=== PATIENT | male | born 1945 | race Caucasian/White ===

== ENCOUNTER 2019-12-08 15:06 | Emergency (ER) | payer OTHER, MEDICARE, SELFPAY ==
[2019-12-08] VITALS (7 sets, daily range): BP systolic 129–161; BP diastolic 58–98; PULSE 68–91; RESP 14–20; TEMP 36.1–36.8; O2SAT 98–100; BMI 24.1
--- NOTE | 2019-12-08 15:52 | EKG12_ITS ---
Test Reason : DYSRHYTHMIA Blood Pressure : / mmHG Vent. Rate : 066 BPM Atrial Rate : 066 BPM P-R Int : 148 ms QRS Dur : 066 ms QT Int : 386 ms P-R-T Axes : 022 078 066 degrees QTc Int : 404 ms Normal sinus rhythm with sinus arrhythmia Early repolarization Normal ECG Confirmed by JUDY ABDI, DIXIE ([id number]), film editor DEBORA BARKSDALE ([id number]) on 12/13/2019 8:07:16 AM Referred By: ANDRA Confirmed By:DIXIE KIM MD
[2019-12-08] MEDS: Ipratropium/Albuterol Sulfate 3 ML AMPUL.NEB INHALATION (16:12)
[2019-12-08 16:27] LABS: Absolute Lymphocyte Count 2.39 X10^3/uL (0.83-4.51); Absolute Neutrophil Count 9.3 X10^3/uL (2.0-7.7); Basophil# 0.08 X10^3/uL; Basophil% 0.6 % (0-1); Eosinophil# 0.13 X10^3/uL; Hematocrit 38.5 % (40-54); Lymphocyte # 2.39 X10^3/ul (4.0); Mean Corp Hgb Conc 33.8 g/dL (32-36); Mean Corpuscular Hgb 32.1 pg (27.0-32.0); Mean Corpuscular Volume 95.1 fL (80-94); Mean Platelet Vol. 9.4 fl (6.2-12.0); Monocyte# 0.66 X10^3/uL; Monocyte% 5.2 % (0-10); NRBC Flagged by Analyzer 0 % (0-5); Neutrophil # 9.31 X10^3/uL (2.7-7.7); Neutrophil % 73.9 % (47-70); Platelet Count 277 K/mm3 (150-450); RBC Distribution Width CV 13.1 % (11.6-14.6); RBC Distribution Width SD 45.8 fl (35.1-43.9); Red Blood Count 4.05 M/mm3 (4.6-6.2); White Blood Count 12.6 K/mm3 (4.4-11.0)
--- NOTE | 2019-12-08 16:40 | RAD_ITS ---
STUDY: X-RAY CHEST REASON FOR EXAM: Male, 74 years old. New-onset shortness of breath over the past few weeks. Increased yawning. Decreased energy. TECHNIQUE: Single AP portable view of the chest. COMPARISON: None. FINDINGS: The lungs are clear and expanded. There is no demonstrated pleural abnormality. Normal size heart. Normal mediastinum and shirley. Normal visualized pulmonary arteries. There is atherosclerotic calcification of the aortic arch with tortuosity. There are mild degenerative changes of the visualized thoracic spine. Normal visualized ribs, clavicles, and shoulders. There is no demonstrated abnormality of the visualized soft tissue structures of the upper abdomen. RAD/Chest 1 View (Portable) IMPRESSION: No acute cardiopulmonary disease. Electronically Signed: Napoleon Newsome DO at 16:50 EDT Tel [phone], Service support ,
[2019-12-08 16:53] LABS: D-Dimer Quantitative (DVT/PE) 0.35 FEU/ug/m (0.27-0.49)
[2019-12-08 17:03] LABS: Anion Gap 6 (5-15); BUN 22 mg/dL (7-18); BUN/Creat Ratio 17.9 RATIO (10-20); Chloride 111 mmol/L (98-107); Creatinine, Serum 1.23 mg/dL (0.70-1.30); EST Glomerular Filtration Rate 61 mL/min (>60); Est Glom Filt Rate - Afr Amer 74 mL/min (>60); Estimated Creatinine Clearance 47.22 ml/min; Glucose 73 mg/dL (74-106); Potassium 5.3 mmol/L (3.5-5.1); Sodium Level 139 mmol/L (136-145)
[2019-12-08 17:09] LABS: Lactic Acid 1.4 mmol/L (0.4-1.9)
--- NOTE | 2019-12-08 17:11 | ED.DCSUM_ITS ---
- ER Visit Summary Date of Service: 12/08/19 Chief Complaint: Shortness of breath History of Present Illness: The patient is a 74 M who presents with shortness of breath that is been getting worse over the past 2 weeks. Patient states his breathing is worse with exertion. Patient states he is having subjective fevers and sweats. Patient states he is coughing up clear sputum. Patient admits to some rhinorrhea and sore throat. Patient admits to increasing fatigue. Patient denies any chest pain. Patient admits to nausea but denies any vomiting. Patient denies any sick contacts or exposures to COVID-19. Patient denies any loss of taste or smell. Physical Examination: Vital signs are stable. Patient is afebrile. Patient is in no acute distress. Oral mucosa is pink and moist. Neck is supple. Trachea is midline. There is no JVD noted. Heart was regular rate and rhythm. Lungs are clear but diminished bilaterally. Abdomen is soft. Bowel sounds are normal. There is no tenderness. There is no rebound or guarding noted. Skin is warm dry. Cranial nerves II through XII are intact. There are no focal motor or sensory deficits noted. Extremities are intact. There is no calf tenderness or edema. Test Results: EKG showed normal sinus rhythm with a rate of 66. There are no acute ST or T wave changes. Portable chest x-ray was obtained. There is no acute cardiopulmonary process. CBC shows a slight leukocytosis of 12.6. Basic metabolic profile shows a potassium of 5.3 but the specimen was moderately hemolyzed. Troponin was normal. D-dimer was normal. Influenza swab was negative. COVID test is pending. Emergency Department Course and Treatment: Patient was given a DuoNeb aerosol here. Patient was given a dose of prednisone here. Patient is feeling somewhat better on reevaluation. Ambulatory pulse ox was ordered. Disposition: Care of the patient was turned over to the oncoming physician. If the patient is ambulatory pulse ox is normal, the patient will be discharged home. If the patient's COVID swab is positive he will be instructed to quarantine for 2 weeks. Patient will be instructed to follow-up with his primary care physician in 5 to 7 days. Patient understands and is agreeable with the plan. All questions were answered. Impression: Dyspnea This note was generated with [employer] software. It may contain incorrect words, spelling, and punctuation that were not noted in review of the chart prior to signing ED Disposition - Plan for ED Patient: Diagnosis: Dyspnea Instructions: ED Dyspnea Prescriptions: Prednisone [Deltasone] 60 mg PO DAILY #12 tab Prescription Printed Albuterol Inhaler [Ventolin Hfa] 2 puff INHALATION Q4H PRN PRN #1 inhaler PRN Reason: Wheezing Prescription Printed Referrals: [facility] [Primary Care Provider] - 5-7 Days
[2019-12-08] MEDS: predniSONE 20 MG Tablet 60 MG PO (18:50)
--- NOTE | 2019-12-08 18:54 | ED.RN ---
PT DOES NOT HAVE COMPUTER OR INTERNET ACCESS TO OBTAIN PATIENT PORTAL, INSTRUCTED TO CALL ER FOR COVID RESULTS.
== END 2019-12-08 18:57 | disposition home or self-care (01) ==
PROVIDERS: Emergency Medicine; Emergency Provider Emergency Medicine
DX: R06.00 Dyspnea, unspecified (principal); Z87.891 Personal history of nicotine dependence
CPT/HCPCS: 71045; 80048; 83605; 84484; 85025; 85379; 87635; 87804; 93005; 94640; 99285; G2023; A4216; U0003

== ENCOUNTER 2025-05-22 09:04 | Emergency (ER) | payer OTHER, SELFPAY ==
[2025-05-22 09:04] VITALS: BP 147/93; PULSE 74; RESP 15; TEMP 36; O2SAT 97; BMI 24.6
--- NOTE | 2025-05-22 09:22 | EX.ED.GENINJ ---
HPI History of Present Illness Chief Complaint: Bite Narrative Narrative: Patient is a 80-year-old male presenting to the emergency department for a rash on his left upper arm. Patient has past medical history of hyperlipidemia, PTSD, back pain. Patient states that last stated dinner he was told by his friends that he should get the rash on his left upper arm checked out. He states that about 2 to 3 days ago he noticed the rash and he felt like there was something in it that he scratched out. States that he was recently in some wooded type areas. He denies any symptoms including viral-like symptoms. Denies any joint pain. States this is the only rash she has. States it is not itchy anymore. Denies any fever or chills. 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 combat History of prostate disorder History of fracture of foot History of fracture of leg History of skull fracture History of alcoholism High cholesterol Home Medications ?Medication ?Instructions ?Recorded ?Last Taken ?Type albuterol sulfate 90 mcg/actuation 2 puff inhalation Q4H PRN PRN 12/08/19 Unknown Rx aerosol inhaler Wheezing ##1 prednisone 20 mg tablet 60 mg (3 x 20 mg) PO DAILY #12 tabs 12/08/19 Unknown Rx Allergy/AdvReac Type Severity Reaction Status Date / Time No Known Allergies Allergy Verified 05/22/25 09:05 Surgical History History of total colectomy Social History Smoking Status: Former smoker alcohol intake: former substance use type: marijuana what type of physical activity do you participate in: walking frequency: daily ROS ROS ED ROS Narrative See HPI EXAM Physical Exam Narrative Exam Narrative: Vital signs: Reviewed General: Alert and oriented x 3. No acute distress. Well-appearing, nontoxic HEENT: Head is normocephalic and atraumatic, sinuses nontender, pupils equal round and reactive. Nares are patent. Oropharynx and throat exams normal. Neck: Supple without lymphadenopathy nontender Cardiovascular: Regular rate and rhythm, no murmurs. No rubs or gallops. Normal S1 and S2 Respiratory: Clear to auscultation bilaterally. No wheezes, rales, rhonchi Abdominal: Soft and nontender. Normal bowel sounds. No guarding or rebound. Nonsurgical abdomen Extremities: No tenderness. No bruising. Normal range of motion. Normal sensation. Skin: There is a 3 cm circular, bull's-eye rash to the left inner upper arm. There is no extension of the rash outside the outer edges. Is not warm to the touch. There is no induration, fluctuance or drainage consistent with abscess or cellulitis. The rashes less erythematous in nature but more purpleish. There is no petechiae or bullae. No rash noted anywhere else on the skin or mucosal membranes. Neurological: Cranial nerves II through XII are grossly intact. Normal strength and sensation. Normal cerebellar function The rest of the physical exam is unremarkable Const Vital Signs: 05/22/25 09:04 Temperature 96.8 F L Temperature Source Temporal Pulse Rate 74 Respiratory Rate 15 Blood Pressure 147/93 H Blood Pressure Mean 111 Pulse Ox 97 Oxygen Delivery Method Room Air MDM MDM MDM Narrative Medical decision making narrative: Patient is a 80-year-old male presenting to the emergency department due to concern for possible tick bite. Patient was seen and examined. Vitals are stable. Patient resting bed comfortably in no acute distress. The rash does appear slightly consistent in bull's-eye appearance to a tick bite rash. It is more bruised than I would expect. I discussed with the patient that given we are unsure if this was a tick bite and unsure if it was attached for 72 hours, we can treat with one-time prophylactic dose of doxycycline. Patient has no symptoms and requires no further dosing of this at this time. I did educate him on watching for signs of possible Lyme disease which include viral-like illness over the next 7 to 14 days. I also recommended that he watch the area for any signs of cellulitis or abscess which was discussed with him. He does have a primary care doctor at the [facility] to follow-up with. Patient discharged from the Emergency Department. I do not feel that the patient's evaluation reveals any acute reason for admission at this time. I instructed them to either follow-up with their primary care physician or promptly return to the Emergency Department for reevaluation should symptoms worsen or new symptoms develop. I explained what symptoms would indicate the need to return to the emergency department. Shared decision making was used. The patient voiced understanding of the treatment plan and is agreeable with it. Clinical impression Rash History & Record Review Discussion w/independent historian: Patient Discharge Plan Triage Chief Complaint: Bite ED Provider: Norma Cr Dx/Rx/DC Orders Clinical Impression: Rash Instructions: ED Tick Facts, ED Tick Bite, Antibiotic Treatment Prescriptions: No Action prednisone 20 MG tablet 60 mg PO DAILY Qty: 12 0RF Rx Instructions: With food albuterol sulfate 1 INHALER inhaler 2 puff inhalation Q4H PRN PRN (Reason: Wheezing) Qty: 1 0RF [facility]: [facility] Referrals: [facility] [Primary Care Provider, None] - As soon as possible Activity Restrictions/Additional Instructions: Follow-up with your primary care doctor as soon as possible. You received a prophylactic dose of doxycycline here for possible tick bite. Your evaluation in the Emergency Department did not reveal any acute reason for admission. However, I want to emphasize that you may be early in the course of a disease process or illness even if it is not present. For this reason you should follow-up within 24 hours for reevaluation with either your primary care physician or if necessary back here in the Emergency Department. You should return to the Emergency Department immediately if your symptoms worsen or new symptoms develop. Print Language: [place] Disposition Disposition: Home, Self Care Discharge Date/Time: 05/22/25 09:30
--- OUTSIDE RECORDS SUMMARY | 2025-05-22 09:27 | XMS RPT_ITS | CCD ---
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 [place] [facility] [place] Referring Provider Unavailable Dossi DC, Dr. Bradford Attending Provider [facility] [place] Primary [place] [facility] Referring Provider Unavailable Dossi DC, Dr. Bradford Attending Provider [facility] [place] [facility] [place] Referring Provider Unavailable Dossi DC, Dr. Bradford Attending Provider [phone] [facility] [place] [facility] [place] Referring Unavailable DosSuzette madera Attending [facility] [place] Referring Unavailable DossiSuzette Attending [facility] [place] [facility] Unavailable DossiSuzette [facility] [place] [facility] [place] [facility] [place] Referring Unavailable DossiSuzette Att[facility] [place] [facility] [place] [facility] [place] Referring Unavailable DossiSuzette Attending [facility] [place] [facility] [place] Referring Unavailable DossiSuzette Attending [facility] [place] [facility] [place] Referring Unavailable DossiSuzette Attending [facility] [place] [facility] [place] Referring Unavailable DossiSuzette Attending [facility] [place] [facility] [place] [facility] Unavailable DosSuzette madera Attending [facility] [place] [facility] [place] [facility] Unavailable DosSuzette madera Att[facility] [place] [facility] Un[facility] DossiSuzette [facility] [place] [facility] [place] [facility] Unavailable DossiSuzette Attending [facility] [place] [facility] [place] [facility] Unavailable DossiSuzette Attending [facility] [place] Referring Unavailable Suzette Valiente Attending [facility] [place] [facility] [place] [facility] Unavailable Suzette Valiente [facility] [place] [facility] Un[facility] Suzette Valiente [facility] [place] [facility] Unavailable Medications Current Medications Medication Drug Class(es) Dates Sig (Normalized) Sig (Original) [id number] 200 actuat albuterol 0.09 mg/actuat metered dose inhaler (3 sources) beta2-Adrenergic Agonist Start: 12-08-2019 Albuterol Sulfate 1 INHALER inhaler Active 2 NMA INHALATION EVERY 4 HOURS NEEDED as needed for Wheezing 1 December 08, 2019 12:00am predniSONE 20 mg oral tablet (3 sources) Start: 12-08-2019 take 3 tablets by mouth once daily at mealtime Prednisone 20 MG tablet Active 60 mg PO DAILY December 08, 2019 12:00am With food Completed/Discontinued Medications Medication Drug Class(es) Dates Sig (Normalized) Sig (Original) ARIPiprazole 5 mg oral tablet (1 source) Atypical Antipsychotic take 1 tablet by mouth once daily ARIPiprazole (ABILIFY) 5 mg tablet Take 5 mg by mouth once daily. 0 Active Comment on above: Take 5 mg by mouth o nce daily. aspirin 81 mg delayed release oral tablet (1 source) Platelet Aggregation Inhibitor, Nonsteroidal Anti-inflammatory Drug Start: 03-16-2009 aspirin(ECOTRIN LOW STRENGTH 81 MG TAB) Take one(1) tablet daily. 0 03/16/2009 Active Comment on above: Take one(1) tablet d aily. atorvastatin 40 mg oral tablet (1 source) HMG-CoA Reductase Inhibitor take 1 tablet by mouth once daily atorvastatin (LIPITOR) 40 mg tablet Take 40 mg by mouth once daily. 0 Active Comment on above: Take 40 mg by mouth once daily. citalopram 20 mg oral tablet (1 source) Serotonin Reuptake Inhibitor Start: 01-07-2007 take 1 tablet by mouth once daily citalopram (CELEXA) 20 mg ORAL Tab Take one(1) tablet daily. 0 01/07/2007 Active Comment on above: Take one(1) tablet d aily. loperamide hydrochloride 2 mg oral tablet (1 source) Opioid Agonist take 1 tablet by mouth once daily Loperamide HCl (IMODIUM) 2 mg tab Take 2 mg by mouth once daily. 0 Active Comment on above: Take 2 mg by mouth o nce daily. MULTIVITAMIN TAB (1 source) Start: 08-21-2005 MULTIVITAMIN TAB Take one(1) tablet daily. 0 08/21/2005 Active Comment on above: Take one(1) tablet d aily. OMEGA 3 550 MG CAP (1 source) Start: 08-21-2005 OMEGA 3 550 MG CAP omeprazole 20 mg oral tablet (1 source) Proton Pump Inhibitor OMEPRAZOLE ORAL Take 20 mg by mouth. 0 Active Comment on above: Take 20 mg by mouth. 24 hr oxybutynin chloride 10 mg extended release oral tablet (1 source) Cholinergic Muscarinic Antagonist Start: 08-20-2017 take 1 tablet by mouth once daily oxybutynin ER (DITROPAN XL) 10 mg 24 hr tablet Take 1 tablet by mouth once daily. 90 tablet 3 08/20/2017 Active Comment on above: Take 1 tablet by dayanara th once daily. tamsulosin hydrochloride 0.4 mg oral capsule (1 source) alpha-Adrenergic Mayuri tamsulosin ER (FLOMAX) 0.4 mg cp24 Take 0.4 mg by mouth. 0 Active Comment on above: Take 0.4 mg by mouth . Problems Active Problems Problem Classification Problem Date Documented Date Episodic/Chronic Anxiety disorders (4 sources) Posttraumatic stress disorder; Translations: [Post-traumatic stress disorder, unspecified] 04-09-2021 Chronic Disorders of lipid metabolism (4 sources) Hyperlipidemia; Translations: [Hyperlipidemia, unspecified] 04-09-2021 Chronic Esophageal disorders (1 source) Gastroesophageal reflux disease; Translations: [Gastro-esophageal reflux disease without esophagitis] Onset: 01-30-2021 01-30-2021 Chronic Genitourinary symptoms and ill-defined conditions (1 source) Urge incontinence of urine; Translations: [Urge incontinence] Onset: 08-20-2017 08-20-2017 Chronic Hyperplasia of prostate (1 source) Urinary urgency due to benign prostatic hypertrophy; Translations: [Benign prostatic hyperplasia with lower urinary tract symptoms] 04-09-2021 Chronic Miscellaneous mental health disorders (1 source) Nightmares associated with chronic post-traumatic stress disorder; Translations: [Nightmare disorder] 08-20-2017 Chronic Other bone disease and musculoskeletal deformities (20 sources) Segmental and somatic dysfunction; Translations: [Segmental and somatic dysfunction of cervical region] 11-02-2020 Episodic Other bone disease and musculoskeletal deformities (1 source) Segmental and somatic dysfunction of pelvic region; Translations: [Segmental and somatic dysfunction of pelvic region] Onset: 12-01-2024 Episodic Other bone disease and musculoskeletal deformities (1 source) Segmental and somatic dysfunction of cervical region; Translations: [Segmental and somatic dysfunction of cervical region] Onset: 12-01-2024 Episodic Other bone disease and musculoskeletal deformities (1 source) Segmental and somatic dysfunction of thoracic region; Translations: [Segmental and somatic dysfunction of thoracic region] Onset: 12-01-2024 Episodic Other bone disease and musculoskeletal deformities (1 source) Segmental and somatic dysfunction of lumbar region; Translations: [Segmental and somatic dysfunction of lumbar region] Onset: 12-01-2024 Episodic Other lower respiratory disease (3 sources) Dyspnea; Translations: [Dyspnea, unspecified] 12-09-2019 Episodic Spondylosis; intervertebral disc disorders; other back problems (20 sources) Degeneration of lumbosacral intervertebral disc; Translations: [Degeneration of intervertebral disc of lumbosacral region] Onset: 02-24-2024 03-16-2024 Chronic Comment on above: L5/S1 Spondylosis; intervertebral disc disorders; other back problems (19 sources) Backache; Translations: [Dorsalgia, unspecified] 08-08-2021 Episodic Unclassified (1 source) Other intervertebral disc degeneration, lumbosacral region with discogenic back pain only; Translations: [Other intervertebral disc degeneration, lumbosacral region with discogenic back pain only] Onset: 12-01-2024 Unclassified (1 source) Low back pain, unspecified; Translations: [Low back pain, unspecified] Onset: 10-13-2024 Past or Other Problems Problem Classification Problem Date Documented Date Episodic/Chronic Cardiac dysrhythmias (1 source) Sinus bradycardia; Translations: [Bradycardia, unspecified] Onset: 01-30-2021 01-30-2021 Episodic Other and unspecified benign neoplasm (1 source) Benign neoplasm of colon; Translations: [Benign neoplasm of colon, unspecified] Onset: 06-04-2005 06-04-2005 Episodic Other ear and sense organ disorders (1 source) Patient encounter status; Translations: [Examination of ears and hearing] Onset: 08-21-2005 08-21-2005 Episodic Other nervous system disorders (1 source) Postoperative pain ; Translations: [Other acute postprocedural pain] Onset: 04-06-2021 04-09-2021 Episodic Residual codes; unclassified (1 source) History of total colectomy; Translations: [Acquired absence of other specified parts of digestive tract] Onset: 01-30-2021 01-30-2021 Episodic Screening and history of mental health and substance abuse codes (1 source) Ex-smoker; Translations: [Personal history of nicotine dependence] Onset: 01-30-2021 01-30-2021 Episodic Results Test Name Value Interpretation Reference Range Facil ity Chiropractic Reporton 2024 Chiropractic Report [facility] [place] [address] OFFICE VISIT Date of Service: 12/01/24 MR#: [id number] Acct: [id number] Name: CAMERON CODY Rep #: [id number] : 1945 Provider: ELMIRA Bradford Do ssi Age/Sex: 79/M Location: [facility] [place] Status: Signed Intake Vital Signs 09/21/24 10:05 Height 5 ft 6 in Intake Visit Reasons: Back pain Chief Complaint: Low Back and neck Pain Is patient in pain?: Yes (low back and neck ) Pain scale (1-10): 5 Allergies No Known Allergies Allergy (Verified 12/01/24 11:15) Medications ???Medication ???Instructions ???Recorded ???Confirmed ???Type albuterol sulfate 90 mcg/actuation 2 puff inhalation Q4H PRN PRN 12/01/24 Rx aerosol inhaler Wheezing ##1 prednisone 20 mg tablet 60 mg (3 x 20 mg) PO DAILY #12 tab s 12/08/19 12/01/24 Rx Have you fallen in the past year?: No PFSH Medical History Chronic post-traumatic stress disorder (PTSD) after combat History of prostate disorder History of fracture of foot History of fracture of leg History of skull fracture History of alcoholism High cholesterol Surgical History History of total colectomy Social History Smoking Status: Former smoker alcohol intake: former substance use type: marijuana what type of physical activity do you participate in: walking frequency: daily HPI Back pain Chief Complaint: low back/neck Visit Number: 7 Details: CAMERON CODY is a 79 year old M here to follow up with ongoing low back and neck pain. Pt. complains of neck pain and stiffness that is slightly worse on the right side and extends into his traps and across his shoulder blades. He also reports limited and painful ROM. He rates his neck and upper back pain 7/10. He also c/o low back pain and stiffness that is equal bilaterally. He states he has not been doing much outside d/t the hot humid weather we have been having. He rates his low back pain 5/10. He states he has slowed down recently and is feeling his age. He states he is going to try walk today since it is a little cooler. He states walking helps decrease his stiffness. Cameron treats pain at home with ice as needed. Pt. denies new injury, numbness, tingling. or radiculopathy. He reports chiropractic adjustments are helpful in relieving his pain and discomfort but it gradually returns. Location: Neck/Back Duration: frequent Aggravating or associated factors: sitting/standing transition, ADLs Relieving factors: chiro Treatment: ice, walking Pain Quality: aching and dull Exam Musc General: Yes normal posture, normal gait, joint tenderness and decreased range of motion Cervical Spine: Yes loss of normal cervical lordosis, Yes cervical muscular tenderness bilateral lower , Yes cervical spasm right greater than left diffuse trapezius and paracervical muscles and Yes misalignment misalignment: C4, C5, C6 and C7 Thoracic/Lumber: Yes thoracic and lumbar spine normal to inspection, Yes paraspinal tenderness on the right greater than left (upper thoracic,lower lumbar), Yes scoliosis (lower thoracic-right, Lumbar- left), Yes thoraco-lumbar spasm on the right greater than left (paraspinal T2-T6, trap) and on the left greater than right (T10-L5 paraspinal) and Yes misalignment T1, T2, T5, T6, L4, L5 and LIL Sacroiliac joints: on the left tender to palpation Office Procedures Procedures - Chiropractic Procedures Manipulation: Cervical C6, Lumbar L4, Thoracic T2 and T6 and Pelvis LIL Manipulation: 3-4 regions Patient Response: positive Assessment and Plan Assessment and Plan (1) Segmental and somatic dysfunction of lumbar region: Status: Acute (2) Segmental and somatic dysfunction of thoracic region: Status: Acute (3) Segmental and somatic dysfunction of cervical region: Status: Acute (4) Segmental and somatic dysfunction of pelvic region: Status: Acute (5) DDD (degenerative disc disease), lumbosacral: Status: Chronic Qualifiers: Disc-related pain type: discogenic back pain only Qualified Code(s): M51.370 - Other intervertebral disc degeneration, lumbosacral region with discogenic back pain only Comment: L5/S1 Orders: Orders Chiropractic Treatments 12/01/24 M51.370 - Other intervertebral disc degeneration, lumbosacral region with discogenic back pain only, M99.01 - Segmental and somatic dysfunction of cervical region, M99.02 - Segmental and somatic dysfunction of thoracic region, M99.03 - Segmental and somatic dysfunction of lumbar region, M99.05 - Segmental and somatic dysfunction of pelvic region Plan Patient was treated without incident. Continue care as needed. Authorize more visits shou (more content not included)... [facility] Chiropractic Reporton 2024 Chiropractic Report [facility] [address] [place] [id number] OFFICE VISIT Date of Service: 11/03/24 MR#: [id number] Acct: [id number] Name: CAMERON CODY Rep #: [id number] : 1945 Provider: ELMIRA Copeland Age/Sex: 79/M Location: [facility] [place] Status: Signed Intake Vital Signs 09/21/24 10:05 Height 5 ft 6 in Intake Visit Reasons: Back pain Chief Complaint: Low Back and neck Pain Is patient in pain?: Yes (neck, upper and low back) Pain scale (1-10): 7 Allergies No Known Allergies Allergy (Verified 11/03/24 10:10) Medications ???Medication ???Instructions ???Recorded ???Confirmed ???Type albuterol sulfate 90 mcg/actuation 2 puff inhalation Q4H PRN PRN 07 /08/20 06/04/25 Rx aerosol inhaler Wheezing ##1 prednisone 20 mg tablet 60 mg (3 x 20 mg) PO DAILY #12 tab s 12/08/19 11/03/24 Rx Have you fallen in the past year?: No PFSH Medical History Chronic post-traumatic stress disorder (PTSD) after combat History of prostate disorder History of fracture of foot History of fracture of leg History of skull fracture History of alcoholism High cholesterol Surgical History History of total colectomy Social History Smoking Status: Former smoker alcohol intake: former substance use type: marijuana what type of physical activity do you participate in: walking frequency: daily HPI Back pain Chief Complaint: low back/neck Visit Number: 6 Details: CAMERON CODY is a 79 year old M here to follow up with ongoing low back and neck pain. Pt. complains of neck pain and stiffness that is slightly worse on the right side and extends into his traps and across his shoulder blades. He also reports limited and painful ROM. He rates his neck and upper back pain 7/10. He also c/o low back pain and stiffness that is equal bilaterally. He states he unloaded a yard of mulch yesterday which has really increased his upper and low back pain. He rates his low back pain 5/10. He states he has slowed down recently and is feeling his age. He has been outside more due to the weather being nicer. He continues to walk 4 miles per day outside which helps decrease his stiffness. Cameron treats pain at home with ice as needed. Pt. denies new injury, numbness, tingling. or radiculopathy. He reports chiropractic adjustments are helpful in relieving his pain and discomfort but it gradually returns. Location: Neck/Back Duration: frequent Aggravating or associated factors: sitting/standing transition, ADLs Relieving factors: chiro Treatment: ice, walking Pain Quality: aching and dull Exam Musc General: Yes normal posture, normal gait, joint tenderness and decreased range of motion Cervical Spine: Yes loss of normal cervical lordosis, Yes cervical muscular tenderness right greater than left diffuse , Yes cervical spasm right greater than left diffuse trapezius and paracervical muscles and Yes misalignment misalignment: C4, C5, C6 and C7 Thoracic/Lumber: Yes thoracic and lumbar spine normal to inspection, Yes paraspinal tenderness on the right greater than left (upper thoracic,lower lumbar), Yes scoliosis (lower thoracic-right, Lumbar- left), Yes thoraco-lumbar spasm on the right greater than left (paraspinal T2-T6, trap) and on the left greater than right (T10-L5 paraspinal) and Yes misalignment T1, T2, T5, T6, L4, L5 and LIL Sacroiliac joints: on the left tender to palpation Office Procedures Procedures - Chiropractic Procedures Manipulation: Cervical C6, Lumbar L4, Thoracic T2 and T6 and Pelvis LIL Manipulation: 3-4 regions Patient Response: positive Assessment and Plan Assessment and Plan (1) Segmental and somatic dysfunction of lumbar region: Status: Acute (2) Segmental and somatic dysfunction of thoracic region: Status: Acute (3) Segmental and somatic dysfunction of cervical region: Status: Acute (4) Segmental and somatic dysfunction of pelvic region: Status: Acute (5) DDD (degenerative disc disease), lumbosacral: Status: Chronic Qualifiers: Disc-related pain type: discogenic back pain only Qualified Code(s): M51.370 - Other intervertebral disc degeneration, lumbosacral region with discogenic back pain only Comment: L5/S1 (6) Back pain: Status: Chronic Qualifiers: Back pain location: low back pain Chronicity: acute Back pain laterality: bilateral Sciatica presence: without sciatica Qualified Code(s): M54.50 - Low back pain, unspecified Orders: Orders Chiropractic Treatments 11/03/24 M51.370 - Other intervertebral disc degeneration, lumbosacral region with discogenic back pain only, M99.01 - Segmental and somatic dysfunction of cervical region, M99.02 (more content not included)... [facility] Chiropractic Reporton 2024 Chiropractic Report [facility] [address] [place] [id number] OFFICE VISIT Date of Service: 10/13/24 MR#: [id number] Acct: [id number] Name: CAMERON CODY Rep #: [id number] : 1945 Provider: ELMIRA Copeland Age/Sex: 79/M [place] [facility] Status: Signed Intake Vital Signs 09/21/24 10:05 Height 5 ft 6 in Intake Visit Reasons: Back pain Chief Complaint: Low Back and neck Pain Is patient in pain?: Yes (LBP) Pain scale (1-10): 6 Allergies No Known Allergies Allergy (Verified 10/13/24 10:40) Medications ???Medication ???Instructions ???Recorded ???Confirmed ???Type albuterol sulfate 90 mcg/actuation 2 puff inhalation Q4H PRN PRN 10/13/24 Rx aerosol inhaler Wheezing ##1 prednisone 20 mg tablet 60 mg (3 x 20 mg) PO DAILY #12 tab s 12/08/19 10/13/24 Rx Have you fallen in the past year?: No PFSH Medical History Chronic post-traumatic stress disorder (PTSD) after combat History of prostate disorder History of fracture of foot History of fracture of leg History of skull fracture History of alcoholism High cholesterol Surgical History History of total colectomy Social History Smoking Status: Former smoker alcohol intake: former substance use type: marijuana what type of physical activity do you participate in: walking frequency: daily HPI Back pain Chief Complaint: low back/neck Visit Number: 5 Details: CAMERON CODY is a 79 year old M here to follow up with ongoing low back and neck pain. He complains of neck pain that is equal bilaterally and extends into his traps and across his shoulder blades. He denies any headaches and reports limited ROM. He also c/o low back pain and stiffness that is equal bilaterally. He rates his pain 6/10. He states he has slowed down recently and is feeling his age, he has an appointment with his pcp tomorrow for a check up. He has been doing yard work but he has been pacing himself and taking frequent breaks. He has been outside more due to the weather being nicer. He is walking 4 miles per day outside which helps decrease his stiffness. Cameron treats pain at home with ice as needed. Pt. denies new injury, numbness, tingling. or radiculopathy. He reports chiropractic adjustments are helpful in relieving his pain and discomfort but it gradually returns. Location: Neck/Back Duration: frequent Aggravating or associated factors: sitting/standing transition, ADLs Relieving factors: chiro Treatment: ice, walking Pain Quality: aching and dull Exam Musc General: Yes normal posture, normal gait, joint tenderness and decreased range of motion Cervical Spine: Yes loss of normal cervical lordosis, Yes cervical muscular tenderness bilateral lower paracervical muscle and trapezius, Yes cervical spasm bilateral lower trapezius and p aracervical muscles and Yes misalignment misalignment: C4, C5, C6 and C7 Thoracic/Lumber: Yes thoracic and lumbar spine normal to inspection, Yes paraspinal tenderness on the right greater than left (upper thoracic,lower lumbar), Yes scoliosis (lower thoracic-right, Lumbar- left), Yes thoraco-lumbar spasm on the right greater than left (paraspinal T2-T6, trap) and on the left greater than right (T10-L5 paraspinal) and Yes misalignment T1, T2, T5, T6, L4, L5 and LIL Sacroiliac joints: on the left tender to palpation Office Procedures Procedures - Chiropractic Procedures Manipulation: Cervical C6, Lumbar L4, Thoracic T2 and T6 and Pelvis LIL Manipulation: 3-4 regions Patient Response: positive Assessment and Plan Assessment and Plan (1) Back pain: Status: Acute Qualifiers: Back pain laterality: bilateral Back pain location: low back pain Chronicity: acute Sciatica presence: without sciatica Qualified Code(s): M54.50 - Low back pain, unspecified (2) Segmental and somatic dysfunction of lumbar region: Status: Acute (3) Segmental and somatic dysfunction of thoracic region: Status: Acute (4) Segmental and somatic dysfunction of cervical region: Status: Acute (5) Segmental and somatic dysfunction of pelvic region: Status: Acute (6) DDD (degenerative disc disease), lumbosacral: Status: Chronic Qualifiers: Disc-related pain type: discogenic back pain only Qualified Code(s): M51.370 - Other intervertebral disc degeneration, lumbosacral region with discogenic back pain only Comment: L5/S1 Orders: Orders Chiropractic Treatments 10/13/24 M51.370 - Other intervertebral disc degeneration, lumbosacral region with discogenic back pain only, M54.50 - Low back pain, unspecified, M99.01 - Segmental and somatic dysfunction of cervical region, M99.02 - Segmental and soma (more content not included)... [facility] Chiropractic Reporton 2024 Chiropractic Report [facility]ractic [facility] [place] [address] OFFICE VISIT Date of Service: 09/21/24 MR#: [id number] Acct: [id number] Name: CAMERON CODY Rep #: [id number] : 1945 Provider: ELMIRA Copeland Age/Sex: 79/M [place] [facility] Status: Signed Intake Vital Signs 09/07/24 10:23 Height 5 ft 6 in Intake Visit Reasons: Back pain Chief Complaint: Low Back and neck Pain Is patient in pain?: Yes (Neck, LBP) Pain scale (1-10): 4 Allergies No Known Allergies Allergy (Verified 09/21/24 09:41) Medications ???Medication ???Instructions ???Recorded ???Confirmed ???Type albuterol sulfate 90 mcg/actuation 2 puff inhalation Q4H PRN PRN 09/21/24 Rx aerosol inhaler Wheezing ##1 prednisone 20 mg tablet 60 mg (3 x 20 mg) PO DAILY #12 tab s 12/08/19 09/21/24 Rx Have you fallen in the past year?: No PFSH Medical History Chronic post-traumatic stress disorder (PTSD) after combat History of prostate disorder History of fracture of foot History of fracture of leg History of skull fracture History of alcoholism High cholesterol Surgical History History of total colectomy Social History Smoking Status: Former smoker alcohol intake: former substance use type: marijuana what type of physical activity do you participate in: walking frequency: daily HPI Back pain Chief Complaint: low back/neck Visit Number: 5 Details: CAMERON CODY is a 79 year old M here to follow up with ongoing low back and neck pain. He complains of neck pain and stiffness that is equal bilaterally. The neck pain extends into his upper back. He denies any headaches and states his ROM has improved. He rates his neck pain 4/10. He also c/o low back pain and tightness across equal bilaterally. He rates his low back pain 4/10 today. He has been busy power washing his house and truck and raking his leaves which exacerbates his pain. He has been outside more due to the weather being nicer. He is walking 4 miles per day outside which helps decrease his stiffness. He is still rebuilding his strength and energy from being sick this winter. Cameron treats pain at home with ice as needed. Pt. denies new injury, numbness, tingling. or radiculopathy. He reports chiropractic adjustments are helpful in relieving his pain and discomfort but it gradually returns. Location: Neck/Back Duration: frequent Aggravating or associated factors: sitting/standing transition, ADLs Relieving factors: chiro Treatment: ice, walking Pain Quality: aching and dull Exam Musc General: Yes normal posture, normal gait, joint tenderness and decreased range of motion Cervical Spine: Yes loss of normal cervical lordosis, Yes cervical muscular tenderness bilateral lower paracervical muscle and trapezius, Yes cervical spasm bilateral lower trapezius and paracervical muscles and Yes misalignment misalignment: C4, C5, C6 and C7 Thoracic/Lumber: Yes thoracic and lumbar spine normal to inspection, Yes paraspinal tenderness on the right greater than left (upper thoracic,lower lumbar), Yes scoliosis (lower thoracic-right, Lumbar- left), Yes thoraco-lumbar spasm on the right greater than left (paraspinal T2-T6, trap) and on the left greater than right (T10-L5 paraspinal) and Yes misalignment T1, T2, T5, T6, L4, L5 and LIL Sacroiliac joints: on the left tender to palpation Office Procedures Procedures - Chiropractic Procedures Manipulation: Cervical C6, Lumbar L4, Thoracic T2 and T6 and Pelvis LIL Manipulation: 3-4 regions Patient Response: positive Assessment and Plan Assessment and Plan (1) Back pain: Status: Acute Qualifiers: Back pain laterality: bilateral Back pain location: low back pain Chronicity: acute Sciatica presence: without sciatica Qualified Code(s): M54.50 - Low back pain, unspecified (2) Segmental and somatic dysfunction of lumbar region: Status: Acute (3) Segmental and somatic dysfunction of thoracic region: Status: Acute (4) Segmental and somatic dysfunction of cervical region: Status: Acute (5) Segmental and somatic dysfunction of pelvic region: Status: Acute (6) DDD (degenerative disc disease), lumbosacral: Status: Chronic Qualifiers: Disc-related pain type: discogenic back pain only Qualified Code(s): M51.370 - Other intervertebral disc degeneration, lumbosacral region with discogenic back pain only Comment: L5/S1 Orders: Orders Chiropractic Treatments Today M51.370 - Other intervertebral disc degeneration, lumbosacral region with discogenic back pain only, M54.50 - Low back pain, unspecified, M99.01 - Segmental and somatic dysfunction of cervical region, M99.02 (more content not included)... Normal [facility]ropractic Reporton 2024 Chiropractic Report [facility] [place] [address] OFFICE VISIT Date of Service: 09/07/24 MR#: [id number] Acct: [id number] Name: CAMERON CODY Rep #: [id number] : 1945 Provider: ELMIRA Copeland Age/Sex: 79/M Location: [facility] Status: Signed Intake Vital Signs 08/10/24 10:24 Height 5 ft 6 in Intake Visit Reasons: Back pain Chief Complaint: Low Back and neck Pain Allergies No Known Allergies Allergy (Verified 08/10/24 10:12) Have you fallen in the past year?: No [facility] Medical History Chronic post-traumatic stress disorder (PTSD) after combat History of prostate disorder History of fracture of foot History of fracture of leg History of skull fracture History of alcoholism High cholesterol Surgical History History of total colectomy Social History Smoking Status: Former smoker alcohol intake: former substance use type: marijuana what type of physical activity do you participate in: walking frequency: daily HPI Back pain Chief Complaint: low back/neck Visit Number: 4 Details: CAMERON CODY is a 79 year old M here to follow up with ongoing low back and neck pain. Pt. advises his neck is stiff and painful today. The pain extends into his upper back. He denies any headaches or limited ROM today. He rates his neck pain 5/10. He also c/o low back pain and tightness across equal bilaterally. He rates his low back pain 6/10 today. He pressure washed his deck last week which has contributed to his pain. He is trying to be more active now that the weather is nicer. He has been doing yard work and walking 4 miles a day. He is still rebuilding his strength and energy from being sick this winter. Cameron treats pain at home with ice as needed. Pt. denies new injury, numbness, tingling. or radiculopathy. He reports chiropractic adjustments are helpful in relieving his pain and discomfort but it gradually returns. Location: Neck/Back Duration: frequent Aggravating or associated factors: sitting/standing transition, ADLs Relieving factors: chiro Treatment: ice, walking Pain Quality: aching and dull Exam Musc General: Yes normal posture, normal gait, joint tenderness and decreased range of motion Cervical Spine: Yes loss of normal cervical lordosis, Yes cervical muscular tenderness bilateral lower paracervical muscle and trapezius, Yes cervical spasm bilateral lower trapezius and paracervical muscles and Yes misalignment misalignment: C4, C5, C6 and C7 Thoracic/Lumber: Yes thoracic and lumbar spine normal to inspection, Yes paraspinal tenderness on the right greater than left (upper thoracic,lower lumbar), Yes scoliosis (lower thoracic-right, Lumbar- left), Yes thoraco-lumbar spasm on the right greater than left (paraspinal T2-T6, trap) and on the left greater than right (T10-L5 paraspinal) and Yes misalignment T1, T2, T5, T6, L4, L5 and LIL Sacroiliac joints: on the left tender to palpation Office Procedures Procedures - Chiropractic Procedures Manipulation: Cervical C6, Lumbar L4, Thoracic T2 and T6 and Pelvis LIL Manipulation: 3-4 regions Patient Response: positive Assessment and Plan Assessment and Plan (1) Segmental and somatic dysfunction of lumbar region: Status: Acute (2) Segmental and somatic dysfunction of thoracic region: Status: Acute (3) Segmental and somatic dysfunction of cervical region: Status: Acute (4) Segmental and somatic dysfunction of pelvic region: Status: Acute (5) DDD (degenerative disc disease), lumbosacral: Status: Chronic Qualifiers: Disc-related pain type: discogenic back pain only Qualified Code(s): M51.370 - Other intervertebral disc degeneration, lumbosacral region with discogenic back pain only Comment: L5/S1 (6) Back pain: Status: Acute Qualifiers: Back pain location: low back pain Chronicity: acute Back pain laterality: bilateral Sciatica presence: without sciatica Qualified Code(s): M54.50 - Low back pain, unspecified Orders: Orders Chiropractic Treatments Today M51.370 - Other intervertebral disc degeneration, lumbosacral region with discogenic back pain only, M99.01 - Segmental and somatic dysfunction of cervical region, M99.02 - Segmental and somatic dysfunction of thoracic region, M99.03 - Segmental and somatic dysfunction of lumbar region, M99.05 - Segmental and somatic dysfunction of pelvic region Plan Patient was treated without incident. Continue care as needed. Plan Details Goals Barriers: Goals Decrease spasm Decrease pain Improve function Barriers DDD Follow Up: PRN (09/07) Coding Level of Care Code No Charge Diagnoses Segmental and somatic dysfuncti (more content not included)... Normal [facility]ic Reporton 2024 Chiropractic Report [facility] [address] [place] [id number] OFFICE VISIT Date of Service: 08/10/24 MR#: [id number] Acct: [id number] Name: CAMERON CODY Rep #: [id number] : 1945 Provider: ELMIRA Copeland Age/Sex: 79/M Location: [facility] Status: Signed Intake Vital Signs 08/13/23 10:18 Height 5 ft 6 in Intake Visit Reasons: Back pain Chief Complaint: Low Back and neck Pain Is patient in pain?: Yes (Neck, LBP) Pain scale (1-10): 5 Allergies No Known Allergies Allergy (Verified 08/10/24 10:12) Medications ???Medication ???Instructions ???Recorded ???Confirmed ???Type albuterol sulfate 90 mcg/actuation 2 puff inhalation Q4H PRN PRN 08/10/24 Rx aerosol inhaler Wheezing ##1 prednisone 20 mg tablet 60 mg (3 x 20 mg) PO DAILY #12 tab s 12/08/19 08/10/24 Rx Have you fallen in the past year?: No PFSH Medical History Chronic post-traumatic stress disorder (PTSD) after combat History of prostate disorder History of fracture of foot History of fracture of leg History of skull fracture History of alcoholism High cholesterol Surgical History History of total colectomy Social History Smoking Status: Former smoker alcohol intake: former substance use type: marijuana what type of physical activity do you participate in: walking frequency: daily HPI Back pain Chief Complaint: low back/neck Visit Number: 3 Details: CAMERON CODY is a 79 year old M here to follow up with ongoing low back and neck pain. Pt. advises he had an EGD yesterday and is moving slow today due to the anesthesia and the time change. He complains of neck pain and stiffness that is equal bilaterally. The pain extends into his upper back. He denies any headaches or limited ROM today. He complains of pain and tightness in his low back. He is trying to be more active now that the weather is nicer. He has been doing yard work and raking leaves which has exacerbated his pain and tightness. He is still rebuilding his strength and energy from being sick this winter. He rates his ain 5/10. Cameron also treats pain at home with ice as needed. Pt. denies new injury, numbness, tingling. or radiculopathy. He reports chiropractic adjustments are helpful in relieving his pain and discomfort but it gradually returns. Location: Neck/Back Duration: frequent Aggravating or associated factors: sitting/standing transition, ADLs,sickness Relieving factors: chiro Treatment: ice, walking Pain Quality: aching and dull Exam Musc General: Yes normal posture, normal gait, joint tenderness and decreased range of motion Cervical Spine: Yes loss of normal cervical lordosis, Yes cervical muscular tenderness bilateral lower paracervical muscle and trapezius, Yes cervical spasm bilateral lower trapezius and paracervical muscles and Yes misalignment misalignment: C4, C5, C6 and C7 Thoracic/Lumber: Yes thoracic and lumbar spine normal to inspection, Yes paraspinal tenderness on the right greater than left (upper thoracic,lower lumbar), Yes scoliosis (lower thoracic-right, Lumbar- left), Yes thoraco-lumbar spasm on the right greater than left (paraspinal T2-T6, trap) and on the left greater than right (T10-L5 paraspinal) and Yes misalignment T1, T2, T5, T6, L4, L5 and LIL Sacroiliac joints: on the left tender to palpation Office Procedures Procedures - Chiropractic Procedures Manipulation: Cervical C6, Lumbar L4, Thoracic T2 and T6 and Pelvis LIL Manipulation: 3-4 regions Patient Response: positive Assessment and Plan Assessment and Plan (1) Back pain: Status: Acute Qualifiers: Back pain laterality: bilateral Back pain location: low back pain Chronicity: acute Sciatica presence: without sciatica Qualified Code(s): M54.50 - Low back pain, unspecified (2) Segmental and somatic dysfunction of lumbar region: Status: Acute (3) Segmental and somatic dysfunction of thoracic region: Status: Acute (4) Segmental and somatic dysfunction of cervical region: Status: Acute (5) Segmental and somatic dysfunction of pelvic region: Status: Acute (6) DDD (degenerative disc disease), lumbosacral: Status: Chronic Qualifiers: Disc-related pain type: discogenic back pain only Qualified Code(s): M51.370 - Other intervertebral disc degeneration, lumbosacral region with discogenic back pain only Comment: L5/S1 Orders: Orders Chiropractic Treatments Today M51.370 - Other intervertebral disc degeneration, lumbosacral region with discogenic back pain only, M54.50 - Low back pain, unspecified, M99.01 - Segmental and somatic dysfunction of cervical region, M99.02 - Segmental and somatic dysfunction o (more content not included)... Normal [facility] Chiropractic Reporton 2024 Chiropractic Report [facility] [place] [address] OFFICE VISIT Date of Service: 07/20/24 MR#: [id number] Acct: [id number] Name: CAMERON CODY Rep #: [id number] : 1945 Provider: ELMIRA Copeland Age/Sex: 79/M Location: [facility] Status: Signed Intake Vital Signs 08/13/23 10:18 Height 5 ft 6 in Intake Visit Reasons: Back pain Chief Complaint: Low Back and neck Pain Is patient in pain?: Yes (Neck, LBP) Pain scale (1-10): 6 Allergies No Known Allergies Allergy (Verified 07/20/24 10:13) Medications ???Medication ???Instructions ???Recorded ???Confirmed ???Type albuterol sulfate 90 mcg/actuation 2 puff inhalation Q4H PRN PRN 07/20/24 Rx aerosol inhaler Wheezing ##1 prednisone 20 mg tablet 60 mg (3 x 20 mg) PO DAILY #12 tab s 12/08/19 07/20/24 Rx Have you fallen in the past year?: No PFSH Medical History Chronic post-traumatic stress disorder (PTSD) after combat History of prostate disorder History of fracture of foot History of fracture of leg History of skull fracture History of alcoholism High cholesterol Surgical History History of total colectomy Social History Smoking Status: Former smoker alcohol intake: former substance use type: marijuana what type of physical activity do you participate in: walking frequency: daily HPI Back pain Chief Complaint: low back/neck Visit Number: 2 Details: CAMERON CODY is a 79 year old M here to follow up with ongoing low back and neck pain. Pt. advises he is still recovering from the stomach flu and his colonoscopy. He states he has been exhausted over the last few weeks and does not have his energy back. He complains of neck pain and stiffness that extends into his upper back. He denies any headaches or limited ROM today. He complains of increased stiffness in his low back, he states he has been very sedentary lately which has caused this. He is very stiff upon ambulation today in the office. He rates his pain 6/10 today. Pt. has not been exercising and walking as often recently with being ill and the inclement weather. He is trying to get his strength back. Cameron also treats pain at home with ice as needed. Pt. denies new injury, numbness, tingling. or radiculopathy. He reports chiropractic adjustments are helpful in relieving his pain and discomfort but it gradually returns. Location: Neck/Back Duration: frequent Aggravating or associated factors: sitting/standing transition, ADLs,sickness Relieving factors: chiro Treatment: ice, walking Pain Quality: aching and dull Exam Musc General: Yes normal posture, normal gait, joint tenderness and decreased range of motion Cervical Spine: Yes loss of normal cervical lordosis, Yes cervical muscular tenderness bilateral lower paracervical muscle and trapezius, Yes cervical spasm bilateral lower trapezius and paracervical muscles and Yes misalignment misalignment: C4, C5, C6 and C7 Thoracic/Lumber: Yes thoracic and lumbar spine normal to inspection, Yes paraspinal tenderness on the right greater than left (upper thoracic,lower lumbar), Yes scoliosis (lower thoracic-right, Lumbar- left), Yes thoraco-lumbar spasm on the right greater than left (paraspinal T2-T6, trap) and on the left greater than right (T10-L5 paraspinal) and Yes misalignment T1, T2, T5, T6, L4, L5 and LIL Sacroiliac joints: on the left tender to palpation Office Procedures Procedures - Chiropractic Procedures Manipulation: Cervical C6, Lumbar L4, Thoracic T2 and T6 and Pelvis LIL Manipulation: 3-4 regions Patient Response: positive Assessment and Plan Assessment and Plan (1) Back pain: Status: Acute Qualifiers: Back pain laterality: bilateral Back pain location: low back pain Chronicity: acute Sciatica presence: without sciatica Qualified Code(s): M54.50 - Low back pain, unspecified (2) Segmental and somatic dysfunction of lumbar region: Status: Acute (3) Segmental and somatic dysfunction of thoracic region: Status: Acute (4) Segmental and somatic dysfunction of cervical region: Status: Acute (5) Segmental and somatic dysfunction of pelvic region: Status: Acute (6) DDD (degenerative disc disease), lumbosacral: Status: Chronic Qualifiers: Disc-related pain type: discogenic back pain only Qualified Code(s): M51.370 - Other intervertebral disc degeneration, lumbosacral region with discogenic back pain only Comment: L5/S1 Orders: Orders Chiropractic Treatments Today M51.370 - Other intervertebral disc degeneration, lumbosacral region with discogenic back pain only, M54.50 - Low back pain, unspecified, M99.01 - Segmental and somatic dys (more content not included)... Normal [facility]ic Reporton 2024 Chiropractic Report [facility] [address] [place] [id number] OFFICE VISIT Date of Service: 06/28/24 MR#: [id number] Acct: [id number] Name: CAMERON CODY Rep #: [id number] : 1945 Provider: ELMIRA Copeland Age/Sex: 79/M Location: [facility] Status: Signed Intake Vital Signs 08/13/23 10:18 Height 5 ft 6 in Intake Visit Reasons: Back pain Chief Complaint: Low Back and neck Pain Is patient in pain?: Yes (low back and neck) Pain scale (1-10): 6 Allergies No Known Allergies Allergy (Verified 06/28/24 09:44) Medications ???Medication ???Instructions ???Recorded ???Confirmed ???Type albuterol sulfate 90 mcg/actuation 2 puff inhalation Q4H PRN PRN 12/08/19 06/28/24 Rx aerosol inhaler Wheezing ##1 prednisone 20 mg tablet 60 mg (3 x 20 mg) PO DAILY #12 tabs 12/08/19 06/28/24 Rx Have you fallen in the past year?: No PFSH Medical History Chronic post-traumatic stress disorder (PTSD) after combat History of prostate disorder History of fracture of foot History of fracture of leg History of skull fracture History of alcoholism High cholesterol Surgical History History of total colectomy Social History Smoking Status: Former smoker alcohol intake: former substance use type: marijuana what type of physical activity do you participate in: walking frequency: daily HPI Back pain Chief Complaint: low back/neck Visit Number: 1 Details: CAMERON CODY is a 79 year old M here to follow up with ongoing low back and neck pain. Pt. advises he was ill with a stomach flu last week. He c/o neck tightness and pain which was aggravated with being laid up on the couch sick last week. He denies any headaches or limited ROM today. He also c/o tightness and achiness across his bilateral low back, equal bilaterally. He rates his pain 6/10 today. Pt. has not been exercising and walking as often recently with being ill and the inclement weather. He is trying to rehydrate and eat simple foods. Cameron also treats pain at home with ice as needed. Pt. denies new injury, numbness, tingling. or radiculopathy. He reports chiropractic adjustments are helpful in relieving his pain and discomfort but it gradually returns. Location: Neck/Back Duration: frequent Aggravating or associated factors: sitting/standing transition, ADLs,sickness Relieving factors: chiro Treatment: ice, walking Pain Quality: aching and dull Exam Musc General: Yes normal posture, normal gait, joint tenderness and decreased range of motion Cervical Spine: Yes loss of normal cervical lordosis, Yes cervical muscular tenderness bilateral lower paracervical muscle and trapezius, Yes cervical spasm bilateral lower trapezius and paracervic al muscles and Yes misalignment misalignment: C4, C5, C6 and C7 Thoracic/Lumber: Yes thoracic and lumbar spine normal to inspection, Yes paraspinal tenderness on the right greater than left (upper thoracic,lower lumbar), Yes scoliosis (lower thoracic-right, Lumbar- left), Yes thoraco-lumbar spasm on the right greater than left (paraspinal T2-T6, trap) and on the left greater than right (T10-L5 paraspinal) and Yes misalignment T1, T2, T5, T6, L4, L5 and LIL Sacroiliac joints: on the left tender to palpation Office Procedures Procedures - Chiropractic Procedures Manipulation: Cervical C6, Lumbar L4, Thoracic T2 and T6 and Pelvis LIL Manipulation: 3-4 regions Patient Response: positive Assessment and Plan Assessment and Plan (1) Segmental and somatic dysfunction of lumbar region: Status: Acute (2) Segmental and somatic dysfunction of thoracic region: Status: Acute (3) Segmental and somatic dysfunction of cervical region: Status: Acute (4) Segmental and somatic dysfunction of pelvic region: Status: Acute (5) DDD (degenerative disc disease), lumbosacral: Status: Chronic Qualifiers: Disc-related pain type: discogenic back pain only Qualified Code(s): M51.370 - Other intervertebral disc degeneration, lumbosacral region with discogenic back pain only Comment: L5/S1 (6) Back pain: Status: Acute Qualifiers: Back pain location: low back pain Chronicity: acute Back pain laterality: bilateral Sciatica presence: without sciatica Qualified Code(s): M54.50 - Low back pain, unspecified Orders: Orders Chiropractic Treatments Today M99.01 - Segmental and somatic dysfunction of cervical region, M99.02 - Segmental and somatic dysfunction of thoracic region, M99.03 - Segmental and somatic dysfunction of lumbar region, M99.05 - Segmental and somatic dysfunction of pelvic region Plan Patient was treated with gentle non rotational adjustment. Well tolerated. Discusse (more content not included)... Normal [facility]ic Reporton 2023 Chiropractic Report [facility] [address] [place] [address] OFFICE VISIT Date of Service: 05/17/24 MR#: [id number] Acct: [id number] Name: CAMERON CODY Rep #: [id number] : 1945 Provider: ELMIRA Copeland Age/Sex: 79/M Location: [facility] Status: Signed Intake Vital Signs 08/13/23 10:18 Height 5 ft 6 in Intake Visit Reasons: Back pain Chief Complaint: Low Back and neck Pain Is patient in pain?: Yes (neck and low back ) Pain scale (1-10): 4 Allergies No Known Allergies Allergy (Verified 12/16/24 09:30) Medications ???Medication ???Instructions ???Recorded ???Confirmed ???Type albuterol sulfate 90 mcg/actuation 2 puff inhalation Q4H PRN PRN 12/08/19 05/17/24 Rx aerosol inhaler Wheezing ##1 prednisone 20 mg tablet 60 mg (3 x 20 mg) PO DAILY #12 tabs 12/08/19 05/17/24 Rx Have you fallen in the past year?: No PFSH Medical History Chronic post-traumatic stress disorder (PTSD) after combat History of prostate disorder History of fracture of foot History of fracture of leg History of skull fracture History of alcoholism High cholesterol Surgical History History of total colectomy Social History Smoking Status: Former smoker alcohol intake: former substance use type: marijuana what type of physical activity do you participate in: walking frequency: daily HPI Back pain Chief Complaint: low back/neck Visit Number: 8 Details: CAMERON CODY is a 79 year old M here to follow up with ongoing low back and neck pain. Pt. has c/o neck tightness and pain, denies any headaches or limited ROM today. He also c/o tightness and achiness that is equal across his bilateral low back, denies any radiculopathy into his buttocks or legs. He rates his overall pain 4/10 today. Pt. has not been walking as often recently with the inclement weather. [facility] and this helps alleviate some of his discomfort.Cameron also treats pain at home with ice as needed. Pt. denies new injury, numbness or tingling.???He reports chiropractic adjustments are helpful in relieving his pain and discomfort but it gradually returns. Location: Neck/Back Duration: intermittent Aggravating or associated factors: sitting/standing transition, ADLs Relieving factors: chiro Treatment: ice, walking Pain Quality: aching and dull Exam Musc General: Yes normal posture, normal gait, joint tenderness and decreased range of motion Cervical Spine: Yes loss of normal cervical lordosis, Yes cervical muscular tenderness (mild) bilateral lower paracervical muscle and trapezius, Yes cervical spasm bilateral lower trapezius and paracervical muscles and Yes misalignment misalignment: C4, C5, C6 and C7 Thoracic/Lumber: Yes thoracic and lumbar spine normal to inspection, Yes paraspinal tenderness on the right greater than left (upper thoracic,lower lumbar), Yes scoliosis (lower thoracic-right, Lumbar- left), Yes thoraco-lumbar spasm on the right greater than left (paraspinal T2-T6, trap) and on the left greater than right (T10-L5 paraspinal) and Yes misalignment T1, T2, T5, T6, L4, L5 and LIL Sacroiliac joints: on the left tender to palpation Office Procedures Procedures - Chiropractic Procedures Manipulation: Cervical C6, Lumbar L4, Thoracic T2 and T6 and Pelvis LIL Manipulation: 3-4 regions Patient Response: positive Assessment and Plan Assessment and Plan (1) Segmental and somatic dysfunction of lumbar region: Status: Acute (2) Segmental and somatic dysfunction of thoracic region: Status: Acute (3) Segmental and somatic dysfunction of cervical region: Status: Acute (4) DDD (degenerative disc disease), lumbosacral: Status: Chronic Qualifiers: Disc-related pain type: discogenic back pain only Qualified Code(s): M51.370 - Other intervertebral disc degeneration, lumbosacral region with discogenic back pain only Comment: L5/S1 (5) Segmental and somatic dysfunction of pelvic region: Status: Acute Orders: Orders Chiropractic Treatments Today M99.01 - Segmental and somatic dysfunction of cervical region, M99.02 - Segmental and somatic dysfunction of thoracic region, M99.03 - Segmental and somatic dysfunction of lumbar region Plan Patient was treated without incident. Continue care as needed. Plan Details Goals Barriers: Goals Decrease spasm Decrease pain Improve function Barriers DDD Follow Up: PRN (01/07) Coding Level of Care Code No Charge Diagnoses Segmental and somatic dysfunction of lumbar region M99.03 Segmental and somatic dysfunction of thoracic region M99.02 Segmental and somatic dysf (more content not included)... [facility]ropractic Reporton 2023 Chiropractic Report [facility] [place] [address] OFFICE VISIT Date of Service: 04/19/24 MR#: [id number] Acct: [id number] Name: CAMERON CODY Rep #: [id number] : 1945 Provider: ELMIRA Copeland Age/Sex: 79/M [place] [facility] [place] Status: Signed Intake Vital Signs 08/13/23 10:18 Height 5 ft 6 in Intake Visit Reasons: Back pain Chief Complaint: Low Back and neck Pain Is patient in pain?: Yes Pain scale (1-10): 4 Allergies No Known Allergies Allergy (Verified 04/19/24 09:25) Have you fallen in the past year?: No PFSH Medical History Chronic post-traumatic stress disorder (PTSD) after combat History of prostate disorder History of fracture of foot History of fracture of leg History of skull fracture History of alcoholism High cholesterol Surgical History History of total colectomy Social History Smoking Status: Former smoker alcohol intake: former substance use type: marijuana what type of physical activity do you participate in: walking frequency: daily HPI Back pain Chief Complaint: low back/neck Visit Number: 7 Details: CAMERON CODY is a 78 year old M here to follow up with ongoing low back and neck pain. Pt. has c/o neck tightness and pain that is central in location, denies any headaches or limited ROM today. [facility] band and this helps alleviate some of his discomfort. He also has c/o tightness and achiness in his bilateral low back, denies any radiculopathy into his buttocks or legs. He rates his pain 4/10 today. Pt. is still walking 4 miles daily when weather permits. Cameron treats pain at home with ice. Pt. denies new injury, numbness or tingling.???He reports chiropractic adjustments are helpful in relieving his pain and discomfort but it gradually returns. Location: Neck/Back Duration: intermittent Aggravating or associated factors: sitting/standing transition, ADLs Relieving factors: chiro Treatment: ice, walking Pain Quality: aching and dull Exam Musc General: Yes normal posture, normal gait, joint tenderness and decreased range of motion Cervical Spine: Yes loss of normal cervical lordosis, Yes cervical muscular tenderness (mild) bilateral lower paracervical muscle and trapezius, Yes cervical spasm bilateral lower trapezius and paracervical muscles and Yes misalignment misalignment: C4, C5, C6 and C7 Thoracic/Lumber: Yes thoracic and lumbar spine normal to inspection, Yes paraspinal tenderness on the right greater than left (upper thoracic,lower lumbar), Yes scoliosis (lower thoracic-right, Lumbar- left), Yes thoraco-lumbar spasm on the right greater than left (paraspinal T2-T6, trap) and on the left greater than right (T10-L5 paraspinal) and Yes misalignment T1, T2, T5, T6, L4, L5 and LIL Sacroiliac joints: on the left tender to palpation Office Procedures Procedures - Chiropractic Procedures Manipulation: Cervical C6, Lumbar L4, Thoracic T2 and T6 and Pelvis LIL Manipulation: 3-4 regions Patient Response: positive Assessment and Plan Assessment and Plan (1) Segmental and somatic dysfunction of lumbar region: Status: Acute (2) Segmental and somatic dysfunction of thoracic region: Status: Acute (3) Segmental and somatic dysfunction of cervical region: Status: Acute (4) Segmental and somatic dysfunction of pelvic region: Status: Acute (5) DDD (degenerative disc disease), lumbosacral: Status: Chronic Qualifiers: Disc-related pain type: discogenic back pain only Qualified Code(s): M51.370 - Other intervertebral disc degeneration, lumbosacral region with discogenic back pain only Comment: L5/S1 Orders: Orders Chiropractic Treatments Today M51.370 - Other intervertebral disc degeneration, lumbosacral region with discogenic back pain only, M54.50 - Low back pain, unspecified, M99.01 - Segmental and somatic dysfunction of cervical region, M99.02 - Segmental and somatic dysfunction of thoracic region, M99.03 - Segmental and somatic dysfunction of lumbar region, M99.05 - Segmental and somatic dysfunction of pelvic region Plan Patient was treated without incident. Continue care as needed. Plan Details Goals Barriers: Goals Decrease spasm Decrease pain Improve function Barriers DDD Follow Up: PRN (11/07) Coding Level of Care Code No Charge Diagnoses Segmental and somatic dysfunction of lumbar region M99.03 Segmental and somatic dysfunction of thoracic region M99.02 Segmental and somatic dysfunction of cervical region M99.01 Segmental and somatic dysfunction of pelvic region M99.05 Degeneration of intervertebral (more content not included)... [facility]ic Reporton 2023 Chiropractic Report [facility] [address] [place] [address] OFFICE VISIT Date of Service: 04/01/24 MR#: [id number] Acct: [id number] Name: CAMERON CODY Rep #: [id number] : 1945 Provider: ELMIRA Copeland Age/Sex: 79/M [place] [facility] [place] Status: Signed Intake Vital Signs 08/13/23 10:18 Height 5 ft 6 in Intake Visit Reasons: Back pain Chief Complaint: Low Back and neck Pain Is patient in pain?: Yes Pain scale (1-10): 6 Allergies No Known Allergies Allergy (Verified 04/01/24 09:39) Have you fallen in the past year?: No PFSH Medical History Chronic post-traumatic stress disorder (PTSD) after combat History of prostate disorder History of fracture of foot History of fracture of leg History of skull fracture History of alcoholism High cholesterol Surgical History History of total colectomy Social History Smoking Status: Former smoker alcohol intake: former substance use type: marijuana what type of physical activity do you participate in: walking frequency: daily HPI Back pain Chief Complaint: low back/neck Visit Number: 6 Details: CAMERON CODY is a 78 year old M here to follow up with ongoing low back and neck pain. Pt. has c/o neck tightness today but it is not painful. He denies any limited ROM or headaches at this time. He also has c/o tightness/achiness in his central low back area, denies any radiculopathy into his buttocks or legs. He has been raking leaves a lot this past week so this has been exacerbating his low back discomfort. He rates his pain 6/10 today. Pt. is still walking 4 miles daily which he reports help decrease his pain and stiffness. Cameron treats pain at home with ice. Pt. denies new injury, numbness or tingling.???He reports chiropractic adjustments are helpful in relieving his pain and discomfort but it gradually returns. Location: Neck/Back Duration: intermittent Aggravating or associated factors: sitting/standing transition, ADLs Relieving factors: chiro Treatment: ice, walking Pain Quality: aching and dull Exam Musc General: Yes normal posture, normal gait, joint tenderness and decreased range of motion Cervical Spine: Yes loss of normal cervical lordosis, Yes cervical muscular tenderness (mild) bilateral lower paracervical muscle and trapezius, Yes cervical spasm bilateral lower trapezius and paracervical muscles and Yes misalignment misalignment: C4, C5, C6 and C7 Thoracic/Lumber: Yes thoracic and lumbar spine normal to inspection, Yes paraspinal tenderness on the right greater than left (upper thoracic,lower lumbar), Yes scoliosis (lower thoracic-right, Lumbar- left), Yes thoraco-lumbar spasm on the right greater than left (paraspinal T2-T6, trap) and on the left greater than right (T10-L5 paraspinal) and Yes misalignment T1, T2, T5, T6, L4, L5 and LIL Sacroiliac joints: on the left tender to palpation Office Procedures Procedures - Chiropractic Procedures Manipulation: Cervical C6, Lumbar L4, Thoracic T2 and T6 and Pelvis LIL Manipulation: 3-4 regions Patient Response: positive Assessment and Plan Assessment and Plan (1) Segmental and somatic dysfunction of lumbar region: Status: Acute (2) Segmental and somatic dysfunction of thoracic region: Status: Acute (3) Segmental and somatic dysfunction of cervical region: Status: Acute (4) Segmental and somatic dysfunction of pelvic region: Status: Acute (5) DDD (degenerative disc disease), lumbosacral: Status: Chronic Qualifiers: Disc-related pain type: discogenic back pain only Qualified Code(s): M51.370 - Other intervertebral disc degeneration, lumbosacral region with discogenic back pain only Comment: L5/S1 Orders: Orders Chiropractic Treatments Today M51.370 - Other intervertebral disc degeneration, lumbosacral region with discogenic back pain only, M54.50 - Low back pain, unspecified, M99.01 - Segmental and somatic dysfunction of cervical region, M99.02 - Segmental and somatic dysfunction of thoracic region, M99.03 - Segmental and somatic dysfunction of lumbar region, M99.05 - Segmental and somatic dysfunction of pelvic region Plan Patient was treated without incident. Continue care as needed. Plan Details Goals Barriers: Goals Decrease spasm Decrease pain Improve function Barriers DDD Follow Up: PRN (10/07) Coding Level of Care Code No Charge Diagnoses Segmental and somatic dysfunction of lumbar region M99.03 Segmental and somatic dysfunction of thoracic region M99.02 Segmental and somatic dysfunction of cervical region M99.01 Segmental and somatic dysfunction of pelvic region M99.05 Degeneration o (more content not included)... [facility]ic Reporton 2023 Chiropractic Report [facility] [address] [place] [address] OFFICE VISIT Date of Service: 03/16/24 MR#: [id number] Acct: [id number] Name: CAMERON CODY Rep #: [id number] : 1945 Provider: ELMIRA Copeland Age/Sex: 78/M [place] [facility] [place] Status: Signed Intake Vital Signs 08/13/23 10:18 Height 5 ft 6 in Intake Visit Reasons: Back pain Chief Complaint: Low Back and neck Pain Is patient in pain?: Yes Pain scale (1-10): 5 Allergies No Known Allergies Allergy (Verified 03/16/24 09:24) Have you fallen in the past year?: No PFSH Medical History Chronic post-traumatic stress disorder (PTSD) after combat History of prostate disorder History of fracture of foot History of fracture of leg History of skull fracture History of alcoholism High cholesterol Surgical History History of total colectomy Social History Smoking Status: Former smoker alcohol intake: former substance use type: marijuana what type of physical activity do you participate in: walking frequency: daily HPI Back pain Chief Complaint: low back/neck Visit Number: 5 Details: CAMERON CODY is a 78 year old M here to follow up with ongoing low back and neck pain. Pt. states that his neck feels tight today but he denies headaches or limited ROM at this time. He states he has been doing PT exercises for his R shoulder and this has been helping his neck a great deal. His low back is also feeling tight today but he denies any radiculopathy into his BL hips or legs. He rates his pain 5/10 today. Pt. is still walking 4 miles daily which he reports help decrease his pain and stiffness. Cameron treats pain at home with ice. Pt. denies new injury, numbness or tingling.???He reports chiropractic adjustments are helpful in relieving his pain and discomfort but it gradually returns. Location: Neck/Back Duration: intermittent Aggravating or associated factors: sitting/standing transition, ADLs Relieving factors: chiro Treatment: ice, walking Pain Quality: aching and dull Exam Musc General: Yes normal posture, normal gait, joint tenderness and decreased range of motion Cervical Spine: Yes loss of normal cervical lordosis, Yes cervical muscular tenderness (mild) bilateral lower paracervical muscle and trapezius, Yes cervical spasm bilateral lower trapezius and paracervical muscles and Yes misalignment misalignment: C4, C5, C6 and C7 Thoracic/Lumber: Yes thoracic and lumbar spine normal to inspection, Yes paraspinal tenderness on the right greater than left (upper thoracic,lower lumbar), Yes scoliosis (lower thoracic-right, Lumbar- left), Yes thoraco-lumbar spasm on the right greater than left (paraspinal T2-T6, trap) and on the left greater than right (T10-L5 paraspinal) and Yes misalignment T1, T2, T5, T6, L4, L5 and LIL Sacroiliac joints: on the left tender to palpation Office Procedures Procedures - Chiropractic Procedures Manipulation: Cervical C6, Lumbar L4, Thoracic T2 and T6 and Pelvis LIL Manipulation: 3-4 regions Patient Response: positive Assessment and Plan Assessment and Plan (1) Segmental and somatic dysfunction of lumbar region: Status: Acute (2) Segmental and somatic dysfunction of thoracic region: Status: Acute (3) Segmental and somatic dysfunction of cervical region: Status: Acute (4) Segmental and somatic dysfunction of pelvic region: Status: Acute (5) DDD (degenerative disc disease), lumbosacral: Status: Chronic Qualifiers: Disc-related pain type: discogenic back pain only Qualified Code(s): M51.370 - Other intervertebral disc degeneration, lumbosacral region with discogenic back pain only Comment: L5/S1 Orders: Orders Chiropractic Treatments Today M54.50 - Low back pain, unspecified, M99.01 - Segmental and somatic dysfunction of cervical region, M99.02 - Segmental and somatic dysfunction of thoracic region, M99.03 - Segmental and somatic dysfunction of lumbar region, M99.05 - Segmental and somatic dysfunction of pelvic region Plan Patient was treated without incident. Continue care as needed. Plan Details Goals Barriers: Goals Decrease spasm Decrease pain Improve function Barriers DDD Follow Up: PRN (10/07) Coding Level of Care Code No Charge Diagnoses Segmental and somatic dysfunction of lumbar region M99.03 Segmental and somatic dysfunction of thoracic region M99.02 Segmental and somatic dysfunction of cervical region M99.01 Segmental and somatic dysfunction of pelvic region M99.05 Degeneration of intervertebral disc of lumbosacral region with discogenic back pain M51.370 Disc-related pain type: discogenic back pain on (more content not included)... [facility]ic Reporton 2023 Chiropractic Report [facility] [address] [place] [address] OFFICE VISIT Date of Service: 02/24/24 MR#: [id number] Acct: [id number] Name: CAMERON CODY Rep #: [id number] : 1945 Provider: ELMIRA Copeland Age/Sex: 78/M Location: [facility] [place] Status: Signed Intake Vital Signs 08/13/23 10:18 Height 5 ft 6 in Intake Visit Reasons: Back pain Chief Complaint: Low Back and neck Pain Is patient in pain?: Yes Pain scale (1-10): 5 Allergies No Known Allergies Allergy (Verified 02/24/24 10:10) Have you fallen in the past year?: [facility] Chronic post-traumatic stress disorder (PTSD) after combat History of prostate disorder History of fracture of foot History of fracture of leg History of skull fracture History of alcoholism High cholesterol Surgical History History of total colectomy Social History Smoking Status: Former smoker alcohol intake: former substance use type: marijuana what type of physical activity do you participate in: walking frequency: daily HPI Back pain Chief Complaint: low back/neck Visit Number: 4 Details: CAMERON CODY is a 78 year old M here to follow up with ongoing low back and neck pain. Pt. still has c/o stiffness in his neck but its mild today. His low back is stiff bilaterally and achy at times. He rates his pain 5/10 today. Pt. is back to walking 4 miles daily which he reports help decrease his pain and stiffness. Cameron treats pain at home with ice. Pt. denies new injury, numbness, tingling, or radiculopathy at this time.???He reports chiropractic adjustments are helpful in relieving his pain and discomfort but it gradually returns. Location: Neck/Back Duration: intermittent Aggravating or associated factors: sitting/standing transition, ADLs Relieving factors: chiro Treatment: ice, walking Pain Quality: aching and dull Exam Musc General: Yes normal posture, normal gait, joint tenderness and decreased range of motion Cervical Spine: Yes loss of normal cervical lordosis, Yes cervical muscular tenderness bilateral lower paracervical muscle and trapezius, Yes cervical spasm bilateral lower trapezius and paracervical muscles and Yes misalignment misalignment: C4, C5, C6 and C7 Thoracic/Lumber: Yes thoracic and lumbar spine normal to inspection, Yes paraspinal tenderness on the right greater than left (upper thoracic,lower lumbar), Yes scoliosis (lower thoracic-right, Lumbar- left), Yes thoraco-lumbar spasm on the right greater than left (paraspinal T2-T6, trap) and on the left greater than right (T10-L5 paraspinal) and Yes misalignment T1, T2, T5, T6, L4, L5 and LIL Sacroiliac joints: on the left tender to palpation Office Procedures Procedures - Chiropractic Procedures Manipulation: Cervical C6, Lumbar L4, Thoracic T2 and T6 and Pelvis LIL Manipulation: 3-4 regions Patient Response: positive Assessment and Plan Assessment and Plan (1) Segmental and somatic dysfunction of lumbar region: Status: Acute (2) Segmental and somatic dysfunction of thoracic region: Status: Acute (3) Segmental and somatic dysfunction of cervical region: Status: Acute (4) Segmental and somatic dysfunction of pelvic region: Status: Acute (5) DDD (degenerative disc disease), lumbosacral: Status: Chronic Comment: L5/S1 Orders: Orders Chiropractic Treatments Today M51.37 - Other intervertebral disc degeneration, lumbosacral region, M99.01 - Segmental and somatic dysfunction of cervical region, M99.02 - Segmental and somatic dysfunction of thoracic region, M99.03 - Segmental and somatic dysfunction of lumbar region, M99.05 - Segmental and somatic dysfunction of pelvic region Plan Patient was treated without incident. Continue care as needed. Plan Details Goals Barriers: Goals Decrease spasm Decrease pain Improve function Barriers DDD Follow Up: PRN (09/07) Coding Level of Care Code No Charge Diagnoses Segmental and somatic dysfunction of lumbar region M99.03 Segmental and somatic dysfunction of thoracic region M99.02 Segmental and somatic dysfunction of cervical region M99.01 Segmental and somatic dysfunction of pelvic region M99.05 DDD (degenerative disc disease), lumbosacral M51.37 CPT Codes Procedures - Manipulation: 3-4 regions (60020) Clinical Quality Measures Falls Risk Screening/Assistive Devices Have you fallen in the past year?: No 02/24/24 1149 Date Suzette De Souza Signature: Date (if applicable) CC: [facility] Reporton 2023 Chiropractic Report [facility] [address] [place] [id number] OFFICE VISIT Date of Service: 02/10/24 MR#: [id number] Acct: [id number] Name: CAMERON CODY Rep #: [id number] : 1945 Provider: ELMIRA Copeland Age/Sex: 78/M [place] [facility] [place] Status: Signed Intake Vital Signs 08/13/23 10:18 Height 5 ft 6 in Intake Visit Reasons: Back pain Chief Complaint: Low Back and neck Pain Is patient in pain?: Yes (upper, mid and low back) Pain scale (1-10): 5 Allergies No Known Allergies Allergy (Verified 02/10/24 09:01) Medications ???Medication ???Instructions ???Recorded ???Confirmed ???Type albuterol sulfate 90 mcg/actuation 2 puff inhalation Q4H PRN PRN 12/08/19 02/10/24 Rx aerosol inhaler Wheezing ##1 prednisone 20 mg tablet 60 mg (3 x 20 mg) PO DAILY #12 tabs 12/08/19 02/10/24 Rx Have you fallen in the past year?: No PFSH Medical History Chronic post-traumatic stress disorder (PTSD) after combat History of prostate disorder History of fracture of foot History of fracture of leg History of skull fracture History of alcoholism High cholesterol Surgical History History of total colectomy Social History Smoking Status: Former smoker alcohol intake: former substance use type: marijuana what type of physical activity do you participate in: walking frequency: daily HPI Back pain Chief Complaint: low back/neck Visit Number: 3 Details: CAMERON CODY is a 78 year old M here to follow up with ongoing low back and neck pain. Pt. continues to experience neck pain and stiffness. He also c/o pain in his upper, mid, and low back. He rates his pain 4/10 today. He states his low back as constant dull achy pain is equal bilaterally. He rates his pain 5/10. Pt. is back to walking 4 miles daily which he reports help decrease his pain and stiffness. Cameron treats pain at home with ice. Pt. denies new injury, numbness, tingling, or radiculopathy at this time.???He reports chiropractic adjustments are helpful in relieving his pain and discomfort but it gradually returns. Location: Neck/Back Duration: intermittent Aggravating or associated factors: sitting/standing transition, ADLs Relieving factors: chiro Treatment: ice, walking Pain Quality: aching and dull Exam Musc General: Yes normal posture, normal gait, joint tenderness and decreased range of motion Cervical Spine: Yes loss of normal cervical lordosis, Yes cervical muscular tenderness bilateral lower paracervical muscle and trapezius, Yes cervical spasm bilateral lower trapezius and paracervical muscles and Yes misalignment misalignment: C4, C5, C6 and C7 Thoracic/Lumber: Yes thoracic and lumbar spine normal to inspection, Yes paraspinal tenderness on the right greater than left (upper thoracic,lower lumbar), Yes scoliosis (lower thoracic-right, Lumbar- left), Yes thoraco-lumbar spasm on the right greater than left (paraspinal T2-T6, trap) and on the left greater than right (T10-L5 paraspinal) and Yes misalignment T1, T2, T5, T6, L4, L5 and LIL Sacroiliac joints: on the left tender to palpation Office Procedures Procedures - Chiropractic Procedures Manipulation: Cervical C6, Lumbar L4, Thoracic T2 and T6 and Pelvis LIL Manipulation: 3-4 regions Patient Response: positive Assessment and Plan Assessment and Plan (1) Segmental and somatic dysfunction of lumbar region: Status: Acute (2) Segmental and somatic dysfunction of thoracic region: Status: Acute (3) Segmental and somatic dysfunction of cervical region: Status: Acute (4) Segmental and somatic dysfunction of pelvic region: Status: Acute (5) DDD (degenerative disc disease), lumbosacral: Status: Chronic Comment: L5/S1 Orders: Orders Chiropractic Treatments Today M54.50 - Low back pain, unspecified, M99.01 - Segmental and somatic dysfunction of cervical region, M99.02 - Segmental and somatic dysfunction of thoracic region, M99.03 - Segmental and somatic dysfunction of lumbar region, M99.05 - Segmental and somatic dysfunction of pelvic region Plan Patient was treated without incident. Continue care as needed. Plan Details Goals Barriers: Goals Decrease spasm Decrease pain Improve function Barriers DDD Follow Up: PRN (08/07) Coding Level of Care Code No Charge Diagnoses Segmental and somatic dysfunction of lumbar region M99.03 Segmental and somatic dysfunction of thoracic region M99.02 Segmental and somatic dysfunction of cervical region M99.01 Segmental and somatic dysfunction of pelvic region M99.05 DDD (degenerative disc disease), lumbosacral M51.37 CPT Codes Procedures - Manipulation: 3-4 (more content not included)... Normal [facility]ic Reporton 2023 Chiropractic Report [facility] [address] [place] [address] OFFICE VISIT Date of Service: 01/20/24 MR#: [id number] Acct: [id number] Name: CAMERON CODY Rep #: [id number] : 1945 Provider: ELMIRA Copeland Age/Sex: 78/M [place] [facility] Status: Signed Intake Vital Signs 08/13/23 10:18 Height 5 ft 6 in Intake Visit Reasons: Back pain Chief Complaint: Low Back and neck Pain Allergies No Known Allergies Allergy (Verified 01/20/24 09:04) Medications ???Medication ???Instructions ???Recorded ???Confirmed ???Type albuterol sulfate 90 mcg/actuation 2 puff inhalation Q4H PRN PRN 12/08/19 01/20/24 Rx aerosol inhaler Wheezing ##1 prednisone 20 mg tablet 60 mg (3 x 20 mg) PO DAILY #12 tabs 12/08/19 01/20/24 Rx Have you fallen in the past year?: No PFSH Medical History Chronic post-traumatic stress disorder (PTSD) after combat History of prostate disorder History of fracture of foot History of fracture of leg History of skull fracture History of alcoholism High cholesterol Surgical History History of total colectomy Social History Smoking Status: Former smoker alcohol intake: former substance use type: marijuana what type of physical activity do you participate in: walking frequency: daily HPI Back pain Chief Complaint: low back/neck Visit Number: 2 Details: CAMERON CODY is a 78 year old M here to follow up with ongoing low back and neck pain. Pt. c/o neck pain and feeling very tight and stiff. He rates the discomfort at a 4/10 today. Denies any radiating pain into arms/numbness/tinglin g. He also complains of low back pain that is equal bilaterally. He rates his pain 6/10. Describes his back pain as consistent dull ache. Pt. is back to walking 4 miles daily which he reports help decrease his pain and stiffness. Cameron treats pain at home with ice. Pt. denies new injury, numbness, tingling, or radiculopathy at this time.???He reports chiropractic adjustments are helpful in relieving his pain and discomfort but it gradually returns. Location: Neck/Back Duration: intermittent Aggravating or associated factors: sitting/standing transition, ADLs Relieving factors: chiro Treatment: ice, walking Pain Quality: aching and dull Exam Musc General: Yes normal posture, normal gait, joint tenderness and decreased range of motion Cervical Spine: Yes loss of normal cervical lordosis, Yes cervical muscular tenderness bilateral lower paracervical muscle and trapezius, Yes cervical spasm bilateral lower trapezius and paracervical muscles and Yes misalignment misalignment: C4, C5, C6 and C7 Thoracic/Lumber: Yes thoracic and lumbar spine normal to inspection, Yes paraspinal tenderness on the right greater than left (upper thoracic,lower lumbar), Yes scoliosis (lower thoracic-right, Lumbar- left), Yes thoraco-lumbar spasm on the right greater than left (paraspinal T2-T6, trap) and on the left greater than right (T10-L5 paraspinal) and Yes misalignment T1, T2, T5, T6, L4, L5 and LIL Sacroiliac joints: on the left tender to palpation Office Procedures Procedures - Chiropractic Procedures Manipulation: Cervical C4, Lumbar L4, Thoracic T2 and T6 and Pelvis LIL Manipulation: 3-4 regions Patient Response: positive Assessment and Plan Assessment and Plan (1) Back pain: Status: Acute Qualifiers: Back pain laterality: bilateral Back pain location: low back pain Chronicity: acute Sciatica presence: without sciatica Qualified Code(s): M54.50 - Low back pain, unspecified (2) Segmental and somatic dysfunction of lumbar region: Status: Acute (3) Segmental and somatic dysfunction of thoracic region: Status: Acute (4) Segmental and somatic dysfunction of cervical region: Status: Acute (5) Segmental and somatic dysfunction of pelvic region: Status: Acute (6) DDD (degenerative disc disease), lumbosacral: Status: Chronic Comment: L5/S1 Orders: Orders Chiropractic Treatments Today M51.37 - Other intervertebral disc degeneration, lumbosacral region, M54.50 - Low back pain, unspecified, M99.01 - Segmental and somatic dysfunction of cervical region, M99.02 - Segmental and somatic dysfunction of thoracic region, M99.03 - Segmental and somatic dysfunction of lumbar region, M99.05 - Segmental and somatic dysfunction of pelvic region Plan Patient was treated without incident. Continue care as needed. He felt relief upon departure. Plan Details Goals Barriers: Goals Decrease spasm Decrease pain Improve function Barriers DDD Follow Up: PRN (07/10) Coding Level of Care Code No Charge Diagnoses Acute bilateral low back (more content not included)... Normal [facility] Reporton 2023 Chiropractic Report [facility] [address] [place] [address] OFFICE VISIT Date of Service: 01/05/24 MR#: [id number] Acct: [id number] Name: CAMERON CODY Rep #: [id number] : 1945 Provider: ELMIRA Copeland Age/Sex: 78/M Location: [facility] [place] Status: Signed Intake Vital Signs 08/13/23 10:18 Height 5 ft 6 in Intake Visit Reasons: Back pain Chief Complaint: Low Back and neck Pain Is patient in pain?: Yes (low back ) Pain scale (1-10): 5 Allergies No Known Allergies Allergy (Verified 01/05/24 10:20) Medications ???Medication ???Instructions ???Recorded ???Confirmed ???Type albuterol sulfate 90 mcg/actuation 2 puff inhalation Q4H PRN PRN 12/08/19 01/05/24 Rx aerosol inhaler Wheezing ##1 prednisone 20 mg tablet 60 mg (3 x 20 mg) PO DAILY #12 tabs 12/08/19 01/05/24 Rx Have you fallen in the past year?: No PFSH Medical History Chronic post-traumatic stress disorder (PTSD) after combat History of prostate disorder History of fracture of foot History of fracture of leg History of skull fracture History of alcoholism High cholesterol Surgical History History of total colectomy Social History Smoking Status: Former smoker alcohol intake: former substance use type: marijuana what type of physical activity do you participate in: walking frequency: daily HPI Back pain Chief Complaint: low back/neck Visit Number: 1 Details: CAMERON CODY is a 78 year old M here to follow up with ongoing low back and neck pain. Pt. c/o neck pain that radiates into his upper back. He also complains of right shoulder pain that has been getting worse. He states the pain is a constant ache and he has limited ROM. He did have recent Xrays and brought in reports for review. He states he starts PT for his right shoulder next week. He also complains of low back pain that is equal bilaterally. He rates his pain 5/10. His back pain had flared up 2 weeks ago and he was unable to stand up straight so he has been resting from yard work and doing things which exacerbate his pain. Pt. is back to walking 4 miles daily which he reports help decrease his pain and stiffness. Cameron treats pain at home with ice. Pt. denies new injury, numbness, tingling, or radiculopathy at this time.???He reports chiropractic adjustments are helpful in relieving his pain and discomfort but it gradually returns. Location: Neck/Back Duration: intermittent Aggravating or associated factors: sitting/standing transition, ADLs Relieving factors: chiro Treatment: ice, walking Pain Quality: aching and dull Exam Musc General: Yes normal posture, normal gait, joint tenderness and decreased range of motion Cervical Spine: Yes loss of normal cervical lordosis, Yes cervical muscular tenderness bilateral lower paracervical muscle and trapezius, Yes cervical spasm bilateral lower trapezius and paracervical muscles and Yes misalignment misalignment: C4, C5, C6 and C7 Thoracic/Lumber: Yes thoracic and lumbar spine normal to inspection, Yes paraspinal tenderness on the right greater than left (upper thoracic,lower lumbar), Yes scoliosis (lower thoracic-right, Lumbar- left), Yes thoraco-lumbar spasm on the right greater than left (paraspinal T2-T6, trap) and on the left greater than right (T10-L5 paraspinal) and Yes misalignment T1, T2, T5, T6, L4, L5 and LIL Sacroiliac joints: on the left tender to palpation Office Procedures Procedures - Chiropractic Procedures Manipulation: Cervical C4, Lumbar L4, Thoracic T2 and T6 and Pelvis LIL Manipulation: 3-4 regions Traction, Mechanical: Yes Patient Response: positive Assessment and Plan Assessment and Plan (1) Back pain: Status: Acute Qualifiers: Back pain laterality: bilateral Back pain location: low back pain Chronicity: acute Sciatica presence: without sciatica Qualified Code(s): M54.50 - Low back pain, unspecified (2) Segmental and somatic dysfunction of lumbar region: Status: Acute (3) Segmental and somatic dysfunction of thoracic region: Status: Acute (4) Segmental and somatic dysfunction of cervical region: Status: Acute (5) Segmental and somatic dysfunction of pelvic region: Status: Acute (6) DDD (degenerative disc disease), lumbosacral: Status: Chronic Comment: L5/S1 Orders: Orders Chiropractic Treatments Today M99.01 - Segmental and somatic dysfunction of cervical region, M99.02 - Segmental and somatic dysfunction of thoracic region, M99.03 - Segmental and somatic dysfunction of lumbar region, M99.05 - Segmental and somatic dysfunction of pelvic region Plan Patient had a break from care and problems increased. He had recent lumba (more content not included)... Normal [facility] THYROID/PARATHYROIDon [facility] Vital Signs Date Time Vital Sign Value Performing Clinician Spencer meier 09-21-2024 10:05-0400 Body height 167.64 cm [facility] Hospital Encounters Encounter Date Encounter Type Care Provider Facility Start: 12-01-2024 End: 12-01-[address] Suzette Valiente DC [facility] Work Phone: Start: 12-01-2024 End: 12-01-2024 [facility]ulatory [facility] Start: 11-03-2024 End: 11-03-[address] Suzette Valiente DC [facility] Work Phone: Start: 11-03-2024 End: 11-03-2024 [facility] Work Phone: Start: 10-13-2024 End: 10-13-[address] Suzette Valiente DC [facility] Work Phone: Start: 10-13-2024 End: 10-13-2024 [facility] Work Phone: Start: 09-21-2024 End: 09-21-[address] Suzette Valiente DC [facility] Work Phone: Start: 09-21-2024 End: 09-21-2024 [facility] Start: 09-07-2024 End: 09-07-[address] [facility] Start: 09-07-2024 End: 09-07-2024 [facility] Start: 08-10-2024 End: 08-10-[address] Suzette Valiente DC [facility] Work Phone: Start: 08-10-2024 End: 08-10-2024 [facility] Start: 08-09-2024 End: 08-09-[address] THERON ANDERSON MD Facility:[facility] Start: 07-20-2024 End: 07-20-[address] Suzette Valiente DC [facility] Work Phone: Start: 07-20-2024 End: 07-20-2024 [facility] Start: 06-28-2024 End: 06-28-[address] Suzette Valiente DC [facility] Work Phone: Start: 06-28-2024 End: 06-28-2024 [facility] Start: 05-17-2024 End: 05-17-2024 [facility] Start: 04-19-2024 End: 04-19-2024 ambulatory Suzette Dossi Facility:[facility] Start: 04-01-2024 End: 04-01-2024 ambulatory Suzette Dossi Facility:[facility] Start: 03-16-2024 End: 03-16-2024 ambulatory Suzette Dossi Facility:[facility] Start: 02-24-2024 End: 02-24-2024 ambulatory Suzette Dossi Facility:[facility] Start: 02-10-2024 End: 02-10-2024 ambulatory [facility] Start: 01-20-2024 End: 01-20-2024 ambulatory [facility] Start: 01-05-2024 End: 01-05-2024 ambulatory [facility] Start: 03-08-2022 End: 03-08-2022 ambulatory MARY FLORENTINO Facility:[facility] Start: 03-08-2022 End: 03-08-2022 Subsequent hospital visit by physician [facility] Work Phone: Radiology Procedures Date Procedure Procedure Detail Performing Clinician Start: 03-08-2022 Us soft tissue head & neck real time imge docm [facility] Provider Plan of Treatment Date Care Activity Detail Author Start: 09-27-2025 COLORECTAL CANCER SCREENING COLORECTAL CANCER SCREENING [facility] Start: 09-27-2025 SIGMOIDOSCOPY SIGMOIDOSCOPY [facility] Start: 04-10-2024 DIABETES SCREEN DIABETES SCREEN [facility] Start: 01-31-2022 Influenza vaccination INFLUENZA (#1) [facility] Start: 06-02-2021 ADVANCE DIRECTIVE DISCUSSION ADVANCE DIRECTIVE DISCUSSION [facility] Start: 06-02-2021 DEPRESSION ASSESSMENT DEPRESSION ASS ESSMENT [facility] Start: 05-17-2021 COVID-19 VACCINE (4 - Booster for Pfizer series) COVID-19 VACCINE (4 - Booster for Pfizer series) [facility] Start: 2012 PNEUMOCOCCAL: 65+ (1 - PCV) PNEUMOCOCCAL: 65+ (1 - PCV) [facility] Start: 1997 SHINGRIX VACCINE (1 of 2) SHINGRIX V ACCINE (1 of 2) [facility] Start: 1992 COLOGUARD (FIT-DNA) COLOGUARD (FIT-D NA) [facility] Start: 1992 Colonoscopy COLONOSCOPY [facility] Start: [address] COLONOGRAPHY [facility] Start: 1992 FECAL OCCULT BLOOD FECAL OCCULT BLOO D [facility] Start: 1982 LIPID SCREEN LIPID SCREEN [facility] Start: 1966 Urine microalbumin profile DTAP,TDAP ,TD (1 - Tdap) [facility] Start: 1965 HEPATITIS C SCREENING HEPATITIS C SC ISMAEL [facility] Start: 1945 ABDOMINAL AORTIC ANE URYSM SCREENING ABDOMINAL AORTIC ANEURYSM SCREENING [facility] Payers Date Payer Category Payer Unknown [id number] 45 2023 Self-pay 2021 Private Health Insurance [facility] [employer] [id number] 2021-Present [phone] [address] [place] [address] PPO [id number] 2021 Unknown [id number] 1999 Medicare MEDICARE MEDICAR E A AND B [id number] 1999-Present [phone] [place] [address] Medicare [id number] 1999 Medicare [id number] 1945 Unknown [id number]. 2.627 Unknown [id number] 2.840.1.581283.3.579. 2.462 Unknown [id number] 2.840.1.040294.3.579. 2.462 Unknown [id number] 2.840.1.153245.3.579. 2.462 Unknown [id number] 2.840.1.543489.3.579. 2.462 Unknown [id number] 2.840.1.893951.3.579. 2.462 Unknown [id number] 2.16.840.1.732916.3.579. 2.462 Unknown [id number] 2.16.840.1.503933.3.579. 2.462 Unknown [id number] 2.16.840.1.427807.3.579. 2.462 Unknown [id number] 2.16.840.1.951316.3.579. 2.462 Unknown [id number] 2.16.840.1.273528.3.579. 2.462 Unknown [id number] 2.16.840.1.813855.3.579. 2.462 Unknown [id number] 2.16.840.1.769023.3.579. 2.462 Unknown [id number] 2.16.840.1.001094.3.579. 2.462 Unknown [id number] 2.16.840.1.522812.3.579. 2.462 Unknown [id number] 2.16.840.1.062427.3.579. 2.462 Unknown [id number] [id number]. 2.462 Social History Date Type Detail Facility Start: 08-20-2017 End: 09-21-2024 Tobacco smoking status NHIS Ex-smoker [facility] History of tobacco use Current smoker [facility] Start: 08-20-2017 Tobacco use and exposure Smokeless tobacco non-user [facility] Start: 04-25-2021 Alcohol intake Ex-drinker (finding) [facility] Start: 1945 Sex Assigned At Not on file [facility] Start: 1945 Sex Assigned At Male [facility] Goals Date Patient Goal Desired Activity /State Evaluation note 08-10-2024 Note Date & Type Note Facility 08-10-2024 Evaluation note Diagnosis Onset Date Resolution Segmental and somatic dysfunction of cervical region acute August 10, 2024 9:47am Segmental and somatic dysfunction of lumbar region acute August 10, 2024 9:47am Segmental and somatic dysfunction of pelvic region acute August 10, 2024 9:47am Segmental and somatic dysfunction of thoracic region acute August 10, 2024 9:47am Back pain chronic August 10 9:47am DDD (degenerative disc disease), lumbosacral chronic July 9:47am Segmental and somatic dysfunction of cervical region acute September 07, 2024 9:43am Segmental and somatic dysfunction of lumbar region acute September 07, 2024 9:43am Segmental and somatic dysfunction of pelvic region acute September 07, 2024 9:43am Segmental and somatic dysfunction of thoracic region acute September 07, 2024 9:43am Back pain chronic September 07 9:43am DDD (degenerative disc disease), lumbosacral chronic September 07, 2024 9:43am Segmental and somatic dysfunction of cervical region acute September 21, 2024 9:17am Segmental and somatic dysfunction of lumbar region acute September 21, 2024 9:17am Segmental and somatic dysfunction of pelvic region acute September 21, 2024 9:17am Segmental and somatic dysfunction of thoracic region acute September 21, 2024 9:17am Back pain chronic September 21 9:17am DDD (degenerative disc disease), lumbosacral chronic August 9:17am Segmental and somatic dysfunction of cervical region acute October 13, 2024 9 :46am Segmental and somatic dysfunction of lumbar region acute October 13, 2024 9 :46am Segmental and somatic dysfunction of pelvic region acute October 13, 2024 9 :46am Segmental and somatic dysfunction of thoracic region acute October 13, 2024 9 :46am Back pain chronic October 13, 2024 9:46am DDD (degenerative disc disease), lumbosacral chronic October 13, 2024 9:46am Segmental and somatic dysfunction of cervical region acute November 03, 2024 9 :49am Segmental and somatic dysfunction of lumbar region acute November 03, 2024 9 :49am Segmental and somatic dysfunction of pelvic region acute November 03, 2024 9 :49am Segmental and somatic dysfunction of thoracic region acute November 03, 2024 9 :49am Back pain chronic November 03, 2024 9:49am DDD (degenerative disc disease), lumbosacral chronic November 03, 2024 9:49am Segmental and somatic dysfunction of cervical region acute December 01, 2024 11:01am Segmental and somatic dysfunction of lumbar region acute December 01, 2024 11:01am Segmental and somatic dysfunction of pelvic region acute December 01, 2024 11:01am Segmental and somatic dysfunction of thoracic region acute December 01, 2024 11:01am DDD (degenerative disc disease), lumbosacral chronic December 01, 2024 11:01am [facility] Work Phone: Evaluation note 07-20-2024 Note Date & Type Note Facility 07-20-2024 Evaluation note Diagnosis Onset Date Resolution Back pain acute July 20, 2024 9:41am Segmental and somatic dysfunction of cervical region acute July 20 9:41am Segmental and somatic dysfunction of lumbar region acute July 20 9:41am Segmental and somatic dysfunction of pelvic region acute July 20 9:41am Segmental and somatic dysfunction of thoracic region acute July 20 9:41am DDD (degenerative disc disease), lumbosacral chronic July 032024 9:41am Back pain acute August 10 9:47am Segmental and somatic dysfunction of cervical region acute August 10, 2024 9:47am Segmental and somatic dysfunction of lumbar region acute August 10, 2024 9:47am Segmental and somatic dysfunction of pelvic region acute August 10, 2024 9:47am Segmental and somatic dysfunction of thoracic region acute August 10, 2024 9:47am DDD (degenerative disc disease), lumbosacral chronic July 9:47am Back pain acute September 07 9:43am Segmental and somatic dysfunction of cervical region acute September 07, 2024 9:43am Segmental and somatic dysfunction of lumbar region acute September 07, 2024 9:43am Segmental and somatic dysfunction of pelvic region acute September 07, 2024 9:43am Segmental and somatic dysfunction of thoracic region acute September 07, 2024 9:43am DDD (degenerative disc disease), lumbosacral chronic September 07, 2024 9:43am Back pain acute September 21 9:17am Segmental and somatic dysfunction of cervical region acute September 21, 2024 9:17am Segmental and somatic dysfunction of lumbar region acute September 21, 2024 9:17am Segmental and somatic dysfunction of pelvic region acute September 21, 2024 9:17am Segmental and somatic dysfunction of thoracic region acute September 21, 2024 9:17am DDD (degenerative disc disease), lumbosacral chronic August 9:17am Back pain acute October 13, 2024 9:46am Segmental and somatic dysfunction of cervical region acute October 13, 2024 9 :46am Segmental and somatic dysfunction of lumbar region acute October 13, 2024 9 :46am Segmental and somatic dysfunction of pelvic region acute October 13, 2024 9 :46am Segmental and somatic dysfunction of thoracic region acute October 13, 2024 9 :46am DDD (degenerative disc disease), lumbosacral chronic October 13, 2024 9:46am Segmental and somatic dysfunction of cervical region acute November 03, 2024 9 :49am Segmental and somatic dysfunction of lumbar region acute November 03, 2024 9 :49am Segmental and somatic dysfunction of pelvic region acute November 03, 2024 9 :49am Segmental and somatic dysfunction of thoracic region acute November 03, 2024 9 :49am DDD (degenerative disc disease), lumbosacral chronic November 03, 2024 9:49am [email or web address] Work Phone: Evaluation note 06-28-2024 Note Date & Type Note Facility 06-28-2024 Evaluation note Diagnosis Onset Date Resolution Back pain acute June 28, 2024 9:13am Segmental and somatic dysfunction of cervical region acute June 28 9:13am Segmental and somatic dysfunction of lumbar region acute June 28 9:13am Segmental and somatic dysfunction of pelvic region acute June 28 9:13am Segmental and somatic dysfunction of thoracic region acute June 28 9:13am DDD (degenerative disc disease), lumbosacral chronic June 282024 9:13am Back pain acute July 20, 2024 9:41am Segmental and somatic dysfunction of cervical region acute July 20 9:41am Segmental and somatic dysfunction of lumbar region acute July 20 9:41am Segmental and somatic dysfunction of pelvic region acute July 20 9:41am Segmental and somatic dysfunction of thoracic region acute July 20 9:41am DDD (degenerative disc disease), lumbosacral chronic July 032024 9:41am Back pain acute August 10 9:47am Segmental and somatic dysfunction of cervical region acute August 10, 2024 9:47am Segmental and somatic dysfunction of lumbar region acute August 10, 2024 9:47am Segmental and somatic dysfunction of pelvic region acute August 10, 2024 9:47am Segmental and somatic dysfunction of thoracic region acute August 10, 2024 9:47am DDD (degenerative disc disease), lumbosacral chronic July 9:47am Back pain acute September 07 9:43am Segmental and somatic dysfunction of cervical region acute September 07, 2024 9:43am Segmental and somatic dysfunction of lumbar region acute September 07, 2024 9:43am Segmental and somatic dysfunction of pelvic region acute September 07, 2024 9:43am Segmental and somatic dysfunction of thoracic region acute September 07, 2024 9:43am DDD (degenerative disc disease), lumbosacral chronic September 07, 2024 9:43am Back pain acute September 21 9:17am Segmental and somatic dysfunction of cervical region acute September 21, 2024 9:17am Segmental and somatic dysfunction of lumbar region acute September 21, 2024 9:17am Segmental and somatic dysfunction of pelvic region acute September 21, 2024 9:17am Segmental and somatic dysfunction of thoracic region acute September 21, 2024 9:17am DDD (degenerative disc disease), lumbosacral chronic August 9:17am Back pain acute October 13, 2024 9:46am Segmental and somatic dysfunction of cervical region acute October 13, 2024 9 :46am Segmental and somatic dysfunction of lumbar region acute October 13, 2024 9 :46am Segmental and somatic dysfunction of pelvic region acute October 13, 2024 9 :46am Segmental and somatic dysfunction of thoracic region acute October 13, 2024 9 :46am DDD (degenerative disc disease), lumbosacral chronic October 13, 2024 9:46am [facility] Work Phone: History of Present illness Narrative 03-08-2022 Shawna Wagoner, [facility] - 03/08/2022 2:30 PM EDT Note Date & Type Note Facility 03-08-2022 History of Presen t illness Narrative Radiology Service Progress Note PATIENT NAME: Cameron Cody DATE OF SERVICE: March 08, 2022 TIME: 2:40 PM PATIENT IDENTITY VERIFICATION COMPLETED USING TWO (2) IDENTIFIERS: Name and Date of confirmed by patient verbally. FALL SCREENING: Has the patient had 2 falls in the last year or 1 fall with injury or currently using an Ambulatory Assistive Device (Walker, Cane, Wheelchair, Crutches, etc.)? No PATIENT GENDER DATA: Male PATIENT RELEVANT IMPLANT DATA REVIEWED: Not Applicable RADIOLOGY DEPARTMENT: Ultrasound PERIPHERAL IV DATA: Not applicable SIGNED BY: Shawna Wagoner RDMS RVT March 08, 2022 2:40 PM documented in this encounter [facility] History of Past illness Narrative 04-06-2021 Note Date & Type Note Facility 04-06-2021 History of Past i llness Narrative Problem Noted Date Resolved Date DVT prophylaxis 04/06/2021 04/09/2021 Last Assessment & Plan: Assessment: PPX during post operative period PLAN: -SQH BID -BL SCD -OOB and ambulating minimum TID Jejunal polyp 01/30/2021 04/09/2021 Last Assessment & Plan: Assessment: Hx of MutYH-associated polyposis (MAP), had TAC w/ TALI, 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 Patient is now s/p SBR with hand sewn end to end anastomosis 04/05 PLAN: -GI soft diet -Protonix 20mg PO daily -Colace 100mg PO BID -F/U pathology documented as of this encounter (statuses as of 03/09/2022) [facility] Reason for referral (narrative) Note Date & Type Note Facility Reason for referral (narrative) No reason for referral information available [email or web address] Work Phone: Summary Purpose Family History No Family History Records FoundNo Family History Records FoundNo Family History Records Found Advance Directives No Advanced Directives Records FoundNo Advanced Directives Records FoundNo Advanced Directives Records Found Chief Complaint and Reason for Visit Chief Complaint Admit Date BACK PAIN June 28, 2024 9 :13am BACK PAIN July 20, 2024 9:41am BACK PAIN August 10, 2024 9:4 7am BACK PAIN September 07, 2024 9:43 am BACK PAIN September 21, 2024 9:1 7am BACK PAIN October 13, 2024 9:46a m Reason for Visit Admit Date Back pain June 28, 2024 9 :13am Segmental and somatic dysfunction of cer vical region June 28, 2024 9:13am Segmental and somatic dysfunction of lum bar region June 28, 2024 9:13am Segmental and somatic dysfunction of pel beverly region June 28, 2024 9:13am Segmental and somatic dysfunction of tho racic region June 28, 2024 9:13am DDD (degenerative disc disease), lumbosa cral June 28, 2024 9:13am Back pain July 20, 2024 9:41am Segmental and somatic dysfunction of cer vical region July 20, 2024 9:41am Segmental and somatic dysfunction of lum bar region July 20, 2024 9:41am Segmental and somatic dysfunction of pel beverly region July 20, 2024 9:41am Segmental and somatic dysfunction of tho racic region July 20, 2024 9:41am DDD (degenerative disc disease), lumbosa cral July 20, 2024 9:41am Back pain August 10, 2024 9:4 7am Segmental and somatic dysfunction of cer vical region August 10, 2024 9:47am Segmental and somatic dysfunction of lum bar region August 10, 2024 9:47am Segmental and somatic dysfunction of pel beverly region August 10, 2024 9:47am Segmental and somatic dysfunction of tho racic region August 10, 2024 9:47am DDD (degenerative disc disease), lumbosa cral August 10, 2024 9:47am Back pain September 07, 2024 9:43 am Segmental and somatic dysfunction of cer vical region September 07, 2024 9:43am Segmental and somatic dysfunction of lum bar region September 07, 2024 9:43am Segmental and somatic dysfunction of pel beverly region September 07, 2024 9:43am Segmental and somatic dysfunction of tho racic region September 07, 2024 9:43am DDD (degenerative disc disease), lumbosa cral September 07, 2024 9:43am Back pain September 21, 2024 9:1 7am Segmental and somatic dysfunction of cer vical region September 21, 2024 9:17am Segmental and somatic dysfunction of lum bar region September 21, 2024 9:17am Segmental and somatic dysfunction of pel beverly region September 21, 2024 9:17am Segmental and somatic dysfunction of tho racic region September 21, 2024 9:17am DDD (degenerative disc disease), lumbosa cral September 21, 2024 9:17am Back pain October 13, 2024 9:46a m Segmental and somatic dysfunction of cer vical region October 13, 2024 9:46am Segmental and somatic dysfunction of lum bar region October 13, 2024 9:46am Segmental and somatic dysfunction of pel beverly region October 13, 2024 9:46am Segmental and somatic dysfunction of tho racic region October 13, 2024 9:46am DDD (degenerative disc disease), lumbosa cral October 13, 2024 9:46am Chief Complaint Admit Date BACK PAIN July 20, 2024 9:41am BACK PAIN August 10, 2024 9:4 7am BACK PAIN September 07, 2024 9:43 am BACK PAIN September 21, 2024 9:1 7am BACK PAIN October 13, 2024 9:46a m BACK PAIN November 03, 2024 9:49a m Reason for Visit Admit Date Back pain July 20, 2024 9:41am Segmental and somatic dysfunction of cer vical region July 20, 2024 9:41am Segmental and somatic dysfunction of lum bar region July 20, 2024 9:41am Segmental and somatic dysfunction of pel beverly region July 20, 2024 9:41am Segmental and somatic dysfunction of tho racic region July 20, 2024 9:41am DDD (degenerative disc disease), lumbosa cral July 20, 2024 9:41am Back pain August 10, 2024 9:4 7am Segmental and somatic dysfunction of cer vical region August 10, 2024 9:47am Segmental and somatic dysfunction of lum bar region August 10, 2024 9:47am Segmental and somatic dysfunction of pel beverly region August 10, 2024 9:47am Segmental and somatic dysfunction of tho racic region August 10, 2024 9:47am DDD (degenerative disc disease), lumbosa cral August 10, 2024 9:47am Back pain September 07, 2024 9:43 am Segmental and somatic dysfunction of cer vical region September 07, 2024 9:43am Segmental and somatic dysfunction of lum bar region September 07, 2024 9:43am Segmental and somatic dysfunction of pel beverly region September 07, 2024 9:43am Segmental and somatic dysfunction of tho racic region September 07, 2024 9:43am DDD (degenerative disc disease), lumbosa cral September 07, 2024 9:43am Back pain September 21, 2024 9:1 7am Segmental and somatic dysfunction of cer vical region September 21, 2024 9:17am Segmental and somatic dysfunction of lum bar region September 21, 2024 9:17am Segmental and somatic dysfunction of pel beverly region September 21, 2024 9:17am Segmental and somatic dysfunction of tho racic region September 21, 2024 9:17am DDD (degenerative disc disease), lumbosa cral September 21, 2024 9:17am Back pain October 13, 2024 9:46a m Segmental and somatic dysfunction of cer vical region October 13, 2024 9:46am Segmental and somatic dysfunction of lum bar region October 13, 2024 9:46am Segmental and somatic dysfunction of pel beverly region October 13, 2024 9:46am Segmental and somatic dysfunction of tho racic region October 13, 2024 9:46am DDD (degenerative disc disease), lumbosa cral October 13, 2024 9:46am Segmental and somatic dysfunction of cer vical region November 03, 2024 9:49am Segmental and somatic dysfunction of lum bar region November 03, 2024 9:49am Segmental and somatic dysfunction of pel beverly region November 03, 2024 9:49am Segmental and somatic dysfunction of tho racic region November 03, 2024 9:49am DDD (degenerative disc disease), lumbosa cral November 03, 2024 9:49am Chief Complaint Admit Date BACK PAIN August 10, 2024 9:4 7am BACK PAIN September 07, 2024 9:43 am BACK PAIN September 21, 2024 9:1 7am BACK PAIN October 13, 2024 9:46a m BACK PAIN November 03, 2024 9:49a m BACK PAIN December 01, 2024 11:01 am Reason for Visit Admit Date Segmental and somatic dysfunction of cer vical region August 10, 2024 9:47am Segmental and somatic dysfunction of lum bar region August 10, 2024 9:47am Segmental and somatic dysfunction of pel beverly region August 10, 2024 9:47am Segmental and somatic dysfunction of tho racic region August 10, 2024 9:47am Back pain August 10, 2024 9:4 7am DDD (degenerative disc disease), lumbosa cral August 10, 2024 9:47am Segmental and somatic dysfunction of cer vical region September 07, 2024 9:43am Segmental and somatic dysfunction of lum bar region September 07, 2024 9:43am Segmental and somatic dysfunction of pel beverly region September 07, 2024 9:43am Segmental and somatic dysfunction of tho racic region September 07, 2024 9:43am Back pain September 07, 2024 9:43 am DDD (degenerative disc disease), lumbosa cral September 07, 2024 9:43am Segmental and somatic dysfunction of cer vical region September 21, 2024 9:17am Segmental and somatic dysfunction of lum bar region September 21, 2024 9:17am Segmental and somatic dysfunction of pel beverly region September 21, 2024 9:17am Segmental and somatic dysfunction of tho racic region September 21, 2024 9:17am Back pain September 21, 2024 9:1 7am DDD (degenerative disc disease), lumbosa cral September 21, 2024 9:17am Segmental and somatic dysfunction of cer vical region October 13, 2024 9:46am Segmental and somatic dysfunction of lum bar region October 13, 2024 9:46am Segmental and somatic dysfunction of pel beverly region October 13, 2024 9:46am Segmental and somatic dysfunction of tho racic region October 13, 2024 9:46am Back pain October 13, 2024 9:46a m DDD (degenerative disc disease), lumbosa cral October 13, 2024 9:46am Segmental and somatic dysfunction of cer vical region November 03, 2024 9:49am Segmental and somatic dysfunction of lum bar region November 03, 2024 9:49am Segmental and somatic dysfunction of pel beverly region November 03, 2024 9:49am Segmental and somatic dysfunction of tho racic region November 03, 2024 9:49am Back pain November 03, 2024 9:49a m DDD (degenerative disc disease), lumbosa cral November 03, 2024 9:49am Segmental and somatic dysfunction of cer vical region December 01, 2024 11:01am Segmental and somatic dysfunction of lum bar region December 01, 2024 11:01am Segmental and somatic dysfunction of pel beverly region December 01, 2024 11:01am Segmental and somatic dysfunction of tho racic region December 01, 2024 11:01am DDD (degenerative disc disease), lumbosa cral December 01, 2024 11:01am Additional Source Comments Source Comments (unrecognize d section and content) In the event this informatio n is protected by the Federal Confidentiality of Alcohol and Drug Abuse Patient Records regulations: The Federal rules restrict any use of the information to criminally investigate or prosecute any alcohol or drug abuse patient.[facility] Reason for Visit (unrecogniz ed section and content) Reason Comments Radiology US Care Teams (unrecognized sec tion and content) [employer] Relationship Specialty Start Date End Date Mary Florentino PCP - General Internal Medicine 05/20/17 Team Status: Active Member Role Status Dates [facility] Primary Care Provider Active Team Status: Inactive Member Role Status Dates [facility] Primary Care Provider Active Start: June 28, 2024 End: June 28, 2024 [facility] Referring Provider Active Start: Juan higgins 2024 End: June 28, 2024 Dr. Suzette Valiente , [place] Attending Provider Active S tart: June 28, 2024 End: June 28, 2024 Team Status: Inactive Member Role Status Dates [facility] Primary Care Provider Active Start: July 20, 2024 End: July 20, 2024 [facility] Referring Provider Active Start: Arleth olguin 2024 End: July 20, 2024 Dr. Suzette Valiente DC Attending Provider Active S tart: July 20, 2024 End: July 20, 2024 Team Status: Inactive Member Role Status Dates [facility] Primary Care Provider Active Start: August 10, 2024 End: August 10, 2024 [facility] Referring Provider Active Start: Susan [facility] 2024 End: August 10, 2024 Dr. Suzette Valiente DC Attending Provider Active S tart: August 10, 2024 End: August 10, 2024 Team Status: Inactive Member Role Status Dates [facility] Primary Care Provider Active Start: September 07, 2024 End: September 07, 2024 [facility] Referring Provider Active Start: Pernell [facility] 2024 End: September 07, 2024 Dr. Suzette Valiente DC Attending Provider Active S tart: September 07, 2024 End: September 07, 2024 Team Status: Inactive Member Role Status Dates [facility] Primary Care Provider Active Start: September 21, 2024 End: September 21, 2024 [facility] Referring Provider Active Start: Pernell [facility] 2024 End: September 21, 2024 Dr. Suzette Valiente DC Attending Provider Active S tart: September 21, 2024 End: September 21, 2024 Team Status: Inactive Member Role Status Dates [facility] Primary Care Provider Active Start: October 13, 2024 End: October 13, 2024 [facility] Referring Provider Active Start: Susan aguirre 2024 End: October 13, 2024 Dr. Suzette Valiente DC Attending Provider Active S tart: October 13, 2024 End: October 13, 2024 Team Status: Inactive Member Role Status Dates [facility] Primary Care Provider Active Start: November 03, 2024 End: November 03, 2024 [facility] Referring Provider Active Start: Madison macias 2024 End: November 03, 2024 Dr. Suzette Valiente DC Attending Provider Active S tart: November 03, 2024 End: November 03, 2024 Team Status: Active Member Role/Relationship Status Dates [facility] Primary Care Provider Active Team Status: Inactive Member Role/Relationship Status Dates [facility] Primary Care Provider Active Start: August 10, 2024 End: August 10, 2024 [facility] Referring Provider Active Start: Susan lewis 2024 End: August 10, 2024 Dr. Suzette Valiente DC Attending Provider Active S tart: August 10, 2024 End: August 10, 2024 Team Status: Inactive Member Role/Relationship Status Dates [facility] Primary Care Provider Active Start: September 07, 2024 End: September 07, 2024 [facility] Referring Provider Active Start: Pernell ril 2024 End: September 07, 2024 Dr. Suzette Valiente DC Attending Provider Active S tart: September 07, 2024 End: September 07, 2024 Team Status: Inactive Member Role/Relationship Status Dates [facility] Primary Care Provider Active Start: September 21, 2024 End: September 21, 2024 [facility] Referring Provider Active Start: Pernell ril 2024 End: September 21, 2024 Dr. Suzette Valiente DC Attending Provider Active S tart: September 21, 2024 End: September 21, 2024 Team Status: Inactive Member Role/Relationship Status Dates [facility] Primary Care Provider Active Start: October 13, 2024 End: October 13, 2024 [facility] Referring Provider Active Start: Susan aguirre 2024 End: October 13, 2024 Dr. Suzette Valiente DC Attending Provider Active S tart: October 13, 2024 End: October 13, 2024 Team Status: Inactive Member Role/Relationship Status Dates [facility] Primary Care Provider Active Start: November 03, 2024 End: November 03, 2024 [facility] Referring Provider Active Start: Madison 2024 End: November 03, 2024 Dr. Suzette Valiente DC Attending Provider Active S tart: November 03, 2024 End: November 03, 2024 Team Status: Inactive Member Role/Relationship Status Dates [facility] Primary Care Provider Active Start: December 01, 2024 End: December 01, 2024 [facility] Referring Provider Active Start: Madison desir 2024 End: December 01, 2024 Dr. Suzette Valiente DC Attending Provider Active S tart: December 01, 2024 End: December 01, 2024 (unrecognized sect ion and content) No Status Records FoundNo Status Records FoundNo Status Records Found INFORMATION SOURCE (unrecogn ized section and content) DATE CREATED AUTHOR 11/01/2023 [facility] DATE CREATED AUTHOR AUTHOR'S ORGANIZ ATION 08/12/2024 [facility] DATE CREATED AUTHOR AUTHOR'S ORGANIZ ATION 12/04/2024 [facility] FOR RECORDS PERTAINING TO PATIENTS WHO ARE OR HAVE BEEN ENROLLED IN A CHEMICAL DEPENDENCY/SUBSTANCEABUSE PROGRAM, SOME INFORMATION MAY BE OMITTED. This clinical summary was aggregated from multiple sources. Caution should be exercised in using it in the provision of clinical care. This summary normalizes information from multiple sources, and as a consequence, information in this document may materially change the coding, format and clinical context of patient data. In addition, data may be omitted in some cases. CLINICAL DECISIONS SHOULD BE BASED ON THE PRIMARY CLINICAL RECORDS. [email or web address] [facility]. provides no warranty or guarantee of the accuracy or completeness of information in this document.
== END 2025-05-22 09:30 | disposition home or self-care (01) ==
LOC: ED 09:24
PROVIDERS: Emergency Provider Student in an Organized Health Care Education/Training Program; Visit Provider Student in an Organized Health Care Education/Training Program
DX: R21 Rash and other nonspecific skin eruption (principal); J44.9 Chronic obstructive pulmonary disease, unspecified; S40.022A Contusion of left upper arm, initial encounter; X58.XXXA Exposure to other specified factors, initial encounter; E78.5 Hyperlipidemia, unspecified; F43.10 Post-traumatic stress disorder, unspecified; M54.9 Dorsalgia, unspecified; Z87.891 Personal history of nicotine dependence
CPT/HCPCS: 99282